=== PATIENT | female | born 1960 | race Caucasian/White ===

== ENCOUNTER 2019-04-15 13:17 | Inpatient (IN) ==
[2019-04-15] MEDS ORDERED: FUROSEMIDE 40 MG/4 ML VIAL IV STA (13:49)
--- NOTE | 2019-04-15 14:19 | XRay Report ---
XR chest 1V portable CLINICAL HISTORY: 58 years-old Female presenting with Dyspnea. TECHNIQUE: Portable upright AP view of the chest was obtained. COMPARISON: None. FINDINGS: Atherosclerosis of the aortic arch. Cardiac silhouette enlarged. Mild pulmonary vascular prominence. Right greater than left pleural effusion suspected. Extensive right mid to basilar opacity with poor aeration of the right lung base. Lesser left basilar opacity. No pneumothorax. Osseous structures nor mal. Upper abdomen normal. IMPRESSION: 1. Cardiomegaly with mild volume overload. 2. Moderate right and small left layering pleural effusions with right greater than left basilar ate lectasis suspected. 3. Underlying consolidation at the right lung base not excluded. Consider PA and lateral views versu s chest CT for further evaluation. ACT 112: Negative or not required by law. Electronically signed by: Jorge Luis Ordoñez M.D. 04/15/2019 2:17 PM
[2019-04-15 14:50] LABS: Basophils # (auto) 0.04 K/uL (0-0.2); Basophils % (auto) 0.6 %; Eosinophils # (auto) 0.11 K/uL (0-0.5); Eosinophils % (auto) 1.6 %; Hematocrit (blood only) 43.8 % (37-47); Hemoglobin 14.4 g/dL (12.0-16.0); Immature Granulocytes # (auto) 0.02 K/uL (0.00-0.02); Immature Granulocytes % (auto) 0.3 %; Lymphocytes # (auto) 1.19 K/uL (1.2-3.4); Lymphocytes % (auto) 17.6 %; Mean Corpuscular Hemoglobin 29.1 pg (25-34); Mean Corpuscular Hgb Conc 32.9 g/dL (32-36); Mean Corpuscular Volume 88.7 fL (80-100); Monocytes # (auto) 0.51 K/uL (0.11-0.59); Monocytes % (auto) 7.5 %; Neutrophils # (auto) 4.91 K/uL (1.4-6.5); Neutrophils % (auto) 72.4 %; Platelet Count 245 K/uL (130-400); RDW Coefficient of Variation 14.7 % (11.5-14.5); Red Blood Count 4.94 M/uL (4.2-5.4); White Blood Count 6.78 K/uL (4.8-10.8)
[2019-04-15 14:59] LABS: INR 1.3 (0.9-1.1); Partial Thromboplastin Ratio 0.9; Partial Thromboplastin Time 25.1 Seconds (21.0-31.0); Prothrombin Time 13.2 Seconds (9.0-12.0)
[2019-04-15 15:10] LABS: Alanine Aminotransferase 16 U/L (12-78); Albumin Globulin Ratio 0.7 (0.9-2); Alkaline Phosphatase 134 U/L (45-117); BUN Creatinine Ratio 10.6 (10-20); Bilirubin,Total 0.9 mg/dl (0.2-1); Blood Urea Nitrogen 7 mg/dl (7-18); Carbon Dioxide 25 mmol/L (21-32); Chloride 102 mmol/L (98-107); Creatinine Clr Calc Pharmacy 112.8 ml/min; Est GFR (African American) 114.5; Est GFR (Non-African American) 98.8; Glucose 325 mg/dl (70-99); NT Pro B Type Natriuretic Pept 2827 pg/ml (0-900); Sodium 135 mmol/L (136-145); Total Protein 7.1 gm/dl (6.4-8.2); Troponin I < 0.015 ng/ml (0-0.045)
[2019-04-15 15:19] LABS: Globulin 4.1 gm/dl (2.5-4.0)
[2019-04-15 15:53] LABS: Potassium 3.4 mmol/L (3.5-5.1)
[2019-04-15 15:59] LABS: Beta-Hydroxybutyrate 4.8 mg/dl (0.2-2.81)
[2019-04-15 16:21] LABS: Appearance Urine Clear (Clear); Bilirubin Urine Negative (Negative); Blood Urine Negative (Negative); Color Urine Yellow; Glucose Urine UA Negative (Negative); Ketones Urine Negative (Negative); Leukocyte Esterase Urine Negative (Negative); Nitrite Urine Negative (Negative); Protein Urine Negative (Negative); Urobilinogen Urine Negative (Negative)
[2019-04-15] MEDS ORDERED: POTASSIUM CHLORIDE 20 MEQ TABCR PO STA (16:36)
[2019-04-15] MEDS ORDERED: NovoLIN-R INSULIN PER UNIT CHARGE IV STA (16:41)
[2019-04-15] MEDS ORDERED: PHARMACY GLYCEMIC MGMT CONSULT STA (16:43)
--- NOTE | 2019-04-15 16:45 | History & Physical Report ---
Date of Service April 15, 2019 Assessment & Plan (1) New onset of congestive heart failure: Patient presents with months history of shortness of breath, dyspnea on exertion, Significant volume overloaded noted on exam Patient has not followed with any physician unknown past cardiac history, patient is not aware of any prior diagnosis of congestive heart failure Chest x-ray shows bilateral pulmonary congestion/with layering of pleural effusion right greater than left/cardiomegaly proBNP 2827 Bilateral lower extreme pitting edema, positive ascites Patient given 40 mg IV Lasix in the ER, Continue with diuresis with 40 mg IV twice daily Ordered for daily weight, monitor intake and output Cardiology consult requested Resting echo ordered to assess LV function, Initial cardiac marker/troponin less than 0.015, serial cardiac markers every 6 hours ordered for ischemic work-up Will order for a fluid restriction 1500 mL/h Hyperglycemia/possible secondary to type 2 diabetes, no prior diagnosis BSG on presentation 325, with elevated beta hydroxybutyric acid 4.80 Normal anion gap, normal bicarb Order to give 8 units of IV insulin stat, Pharmacy consulted for glycemic management, plan of care discussed with pharmacy hb globin A1c ordered to add to the labs drawn already sales representative uniforms consulted Hypertension: No prior diagnosis/has not seen any physician in past Diastolic hypertension noted with diastolic BP more than 100 Patient is ordered for Lasix 40 mg IV twice daily We will start on lisinopril 5 mg daily cardiology consulted, depending on echo finding, patient may benefit with beta- antoinette/Coreg will defer to cardiology for decision Ascites/increased abdominal girth Very likely due to decompensated CHF(unknown ejection fraction-no prior echo)- volume overload with third spacing fluids Order for echocardiogram Continue with diuresis with Lasix 40 mg IV twice daily Normal LFTs, If persistent ascites causing significant discomfort shortness of breath, we may consider abdominal ultrasound- Hypokalemia Patient denies of any episode of nausea vomiting or diarrhea Had poor p.o. intake for generalized weakness, not feeling well, shortness of breath Potassium 3.4 Ordered for 40 mg p.o. supplement Expected potassium level to be persistently low, as patient will be receiving high dose of Lasix, and insulin treatment Ordered scheduled K 20 M EQ p.o. twice daily supplement Repeat BMP in a.m. CODE STATUS: Discussed with patient, does not want any life support or resuscitation, DNR DNI DVT prophylaxis: Moderate to high risk Ordered subcu heparin Disposition; Expected to be discharged home when medically stable History of Present Illness Chief Complaint: Shortness of breath, Primary Care Provider: Rico Fang MD This is a 58-year-old [place] female who has not been followed with any physician, unknown past medical history, presents to ER with complaints of shortness of breath, progressive dyspnea on exertion, lower extremity swelling, and increased abdominal girth Patient mentioned she has been having feeling of shortness of breath for past several weeks, unable to lie flat at night, has been using 3 pillows, Had occasional cough with whitish sputum, no fever or chills Significantly shortness of breath with minimum ambulation, Chest tightness/chest heaviness associated with severe shortness of breath which resolves after taking rest Noted lower extremity swelling for the same duration, also distention of abdomen, leading to discomfort, worsening of shortness of breath when lying flat Reports of increased fatigue, generalized weakness, poor appetite for past several months Mentions of increased thirst, denies of any increased urination, No nausea vomiting, abdominal discomfort secondary to distention Chest x-ray shows pulmonary vascular congestion, patient has 3+ bilateral pitting edema, with prominent ascites, Blood sugar elevated more than 300, Patient denies of prior history of diabetes, Does not know whether her parents had diabetes or not, one nephew is diagnosed with diabetes on oral meds During my interview, patient denied of any shortness of breath at rest, no chest heaviness, no chest discomfort Allergies Allergy/AdvReac Type Severity Reaction Status Date / Time No Known Allergies Allergy Unverified 04/15/19 16:15 Home Medications Home Medications Medication Instructions Recorded Confirmed Type aspirin 325 mg PO UD PRN 04/15/19 04/15/19 History furosemide [Lasix] 20 mg PO DAILY 04/15/19 04/15/19 History Past Med/Surg History Medical History (Updated 04/15/19 @ 17:43 by Jesika Kenyon MD) Diabetes Surgical History No significant past surgical history Social History Feels Safe at Home: Yes Smoking Status: Never smoker Review of Systems Review of Systems: All systems reviewed & are unremarkable except as noted in HPI & below Constitutional: + fatigue, + weakness, + anorexia, + weight gain and + problem reported (Shortness of breath, dyspnea on exertion); no fever and no chills Respiratory: + cough, + dyspnea and + dyspnea on exertion Cardiovascular: + dyspnea, + dyspnea on exertion, + paroxysmal nocturnal dyspn ea and + edema; no radiating jaw, neck or arm pain, no lightheadedness and no syncope Gastrointestinal: + problem reported (Increased abdominal girth, abdominal distention distention causing discomfort); no nausea and no vomiting Genitourinary: no dysuria, no urinary frequency, no urinary urgency, no urinary incontinence and no nocturia Neurologic: + generalized weakness, + dizziness and + syncope Physical Exam Constitutional: WD/WN, vitals as above + ill appearing and + obese; no acute distress Eyes: PERRL, conjunctivae normal, anicteric sclerae ENMT: external ear and nose normal, oropharynx normal Neck: trachea midline, no thyromegaly Respiratory: normal respiratory effort Auscultation: + crackles and + rales (Bilateral rales , more prominent at base) Cardiovascular: Rate/Rhythm: regular rate and regular rhythm Vessels: + JVD (Positive JVD) Extremities: + pedal edema and + edema (Bilateral 3+ pitting edema); no calf tenderness Gastrointestinal (Abdomen): Inspection/Auscultation: + abdomen distended and normal bowel sounds Percussion/Palpation: abdomen soft and + ascites; abdomen nontender Musculoskeletal: no cyanosis or clubbing, extremities motor strength 5/5 Skin: no rashes, warm and dry Neurologic: PERRL, EOMI, accommodation nl, no face palsy, no dysarthria Psychiatric: A+Ox3, euthymic affect Results & Data Vital Signs (Past 12 Hours) Vital Signs Temp Pulse Resp BP Pulse Ox 04/15/19 16:00 119 H 31 H 138/101 H 96 04/15/19 15:30 115 H 20 140/83 97 04/15/19 15:24 116 H 29 H 138/90 96 04/15/19 15:00 115 H 31 H 04/15/19 14:30 116 H 24 04/15/19 14:17 116 H 29 H 96 04/15/19 14:00 112 H 24 04/15/19 13:25 36.4 C L 121 H 20 132/84 94
[2019-04-15] MEDS ORDERED: PHARMACY GLYCEMIC MGMT CONSULT PRN (16:52)
[2019-04-15] MEDS ORDERED: GLUCAGON FOR INJ 1 MG VIAL SQ PRN (17:00)
[2019-04-15] MEDS ORDERED: DEXTROSE 50% 50 ML SYRINGE IV PRN (17:00)
[2019-04-15] MEDS ORDERED: CARBOHYDRATES FOR HYPOGLYCEMIA PO PRN (17:00)
[2019-04-15] MEDS ORDERED: GLUCOSE 10 TABS/TUBE PO PRN (17:00)
[2019-04-15] MEDS ORDERED: INSULIN HUMAN REGULAR PER UNIT 8 UNITS in SYRINGE 7.92 ML IV ONE (17:00)
[2019-04-15] MEDS ORDERED: GLUCOSE 40% GEL 15 GM TUBE PO PRN (17:00)
[2019-04-15] MEDS ORDERED: lisinopriL 5 MG TAB PO ONE (17:33)
[2019-04-15 18:08] LABS: Magnesium 1.6 mg/dl (1.8-2.4)
--- NOTE | 2019-04-15 18:13 | Emergency Department Note ---
Entered by Marla Ahuja acting as a scribe for Michael Wilhelm MD History of Present Illness General Chief complaint: Shortness of Breath/Dyspnea Stated complaint: TROUBLE BREATHING SOB Time Seen by Provider: 04/15/19 13:33 Source: patient History of Present Illness Provider complaint: shortness of breath Onset (ago): month(s) 3 Location: chest Pain Consistency: + other (worsening) Relieved By: + none Associated symptoms: + cough and + other (-abdominal pain, +bilateral leg swelling); no chest pain, no fever/chills and no nausea/vomiting The patient is a 58 year old female w/ PMHx of diabetes who presents to the ED w/ CC of worsening shortness of breath beginning 3 months ago. The patient reports that she has a dry cough. She denies any fever, chills, abdominal pain, chest pain, nausea, or vomiting. She mentions that she has had 20 lb weight gain for the past 2 weeks which she believes have gone to her lower extremites. Home Medications Home Medications Medication Instructions Recorded Confirmed Type aspirin 325 mg PO UD PRN 04/15/19 04/15/19 History furosemide [Lasix] 20 mg PO DAILY 04/15/19 04/15/19 History Allergies Allergy/AdvReac Type Severity Reaction Status Date / Time No Known Allergies Allergy Unverified 04/15/19 16:15 Past Med/Surg History Social History Feels Safe at Home: Yes Smoking Status: Never smoker Review of Systems See HPI for pertinent positives & negatives. and A total of 10 systems reviewed and were otherwise negative Physical Exam Vital Signs Vital Signs - 24 hr 04/15/19 13:25 04/15/19 14:00 04/15/19 14:17 Temperature 36.4 C L Temperature Source Oral Pulse Rate 121 H 112 H 116 H Pulse Rate from SpO2 Sensor Pulse Rhythm Regular Respiratory Rate 20 24 29 H Respiratory Effort / Characteristics Non-Labored Spontaneous Non-Labored Spontaneous Respiratory Depth Normal Normal Blood Pressure 132/84 Blood Pressure Mean 100 Blood Pressure Position Sitting Pulse Oximetry 94 96 Oxygen Delivery Method Room Air Room Air Sepsis Recent Fever Within 48 Hours No Sepsis Action Taken by Nursing No Action Required 04/15/19 14:30 04/15/19 15:00 04/15/19 15:24 Temperature Temperature Source Pulse Rate 116 H 115 H 116 H Pulse Rate from SpO2 Sensor 117 H Pulse Rhythm Respiratory Rate 24 31 H 29 H Respiratory Effort / Characteristics Respiratory Depth Blood Pressure 138/90 Blood Pressure Mean 106 Blood Pressure Position Pulse Oximetry 96 Oxygen Delivery Method Room Air Sepsis Recent Fever Within 48 Hours Sepsis Action Taken by Nursing 04/15/19 15:30 04/15/19 16:00 04/15/19 17:06 Temperature Temperature Source Pulse Rate 115 H 119 H 116 H Pulse Rate from SpO2 Sensor 115 H 119 H 115 H Pulse Rhythm Respiratory Rate 20 31 H 26 H Respiratory Effort / Characteristics Respiratory Depth Blood Pressure 140/83 138/101 H 135/100 Blood Pressure Mean 105 117 122 Blood Pressure Position Pulse Oximetry 97 96 97 Oxygen Delivery Method Room Air Room Air Room Air Sepsis Recent Fever Within 48 Hours Sepsis Action Taken by Nursing 04/15/19 17:19 Temperature Temperature Source Pulse Rate 116 H Pulse Rate from SpO2 Sensor Pulse Rhythm Respiratory Rate 26 H Respiratory Effort / Characteristics Respiratory Depth Blood Pressure 135/100 Blood Pressure Mean Blood Pressure Position Pulse Oximetry 97 Oxygen Delivery Method Room Air Sepsis Recent Fever Within 48 Hours Sepsis Action Taken by Nursing GENERAL: Well nourished, wearing glasses, non-toxic. EYE EXAM: Normal conjunctiva. PERRL, no anisocoria and EOM's grossly intact w/o pain. OROPHARYNX: Moist mucous membranes. Grossly normal dentition. NECK: Supple, no nuchal rigidity, no adenopathy, non-tender. No signs of meningismus. LUNGS: Bibasilar crackles, diminished breath sounds bilaterally. Normal chest wall mechanics. HEART: NSR, no MRG. ABDOMEN: Abdomen soft, non-tender, normo-active bowel sounds, no masses, no rebound or guarding. BACK: No CVA TTP. SKIN: No rashes and no bruising. UPPER EXTREMITIES: Upper extremities are grossly normal. LOWER EXTREMITIES: 3+ lower extremity symmetric edema. No calf pain. NEURO EXAM: A&O x3, cranial nerves II-XII grossly intact, normal speech, moves all 4 extremities on command w/o issue. Course Course 1344: The patient was evaluated in room B5, and a complete history and physical examination were performed. 1540: I reviewed the patient's case with Dr. Kowalski- Hospitalist Brennan. She will evaluate the patient for further management. 1600: I reevaluated and updated the patient on her treatment plan. Administered Medications Insulin Human Regular 8 units/ (Syringe) 8 mls @ 0.08 mls/min IV 1700 ONE Stop: 04/15/19 18:39 Last Admin: 04/15/19 17:07 Dose: 0.08 mls/min Documented by: [id number] Cosigned by: [id number] Discontinued Medications Furosemide (Lasix) 40 mg IV NOW STA Stop: 04/15/19 13:50 Last Admin: 04/15/19 15:25 Dose: 40 mg Documented by: [id number] Potassium Chloride (Klor-Con M20) 40 meq PO NOW STA Stop: 04/15/19 16:37 Last Admin: 04/15/19 17:06 Dose: 40 meq Documented by: [id number] Medical Decision Making Medical Records Attestation: I reviewed the patient's medical records. Home Medications Current Medication List: was personally reviewed by me Laboratory Data Attestation: I reviewed the patient's lab results. Result diagrams: 04/15/19 14:38 04/15/19 15:29 Lab Results 04/15/19 04/15/19 04/15/19 Range/Units 14:38 14:38 14:38 WBC 6.78 (4.8-10.8) K/uL RBC 4.94 (4.2-5.4) M/uL Hgb 14.4 (12.0-16.0) g/dL Hct 43.8 (37-47) % MCV 88.7 (80-100) fL MCH 29.1 (25-34) pg MCHC 32.9 (32-36) g/dL RDW Std Deviation 47.0 H (36.4-46.3) fL RDW Coeff of Zak 14.7 H (11.5-14.5) % Plt Count 245 (130-400) K/uL MPV 10.0 (7.4-10.4) fL Immature Gran % (Auto) 0.3 % Neut % (Auto) 72.4 % Lymph % (Auto) 17.6 % Pender % (Auto) 7.5 % Eos % (Auto) 1.6 % Baso % (Auto) 0.6 % Immature Gran # (Auto) 0.02 (0.00-0.02) K/uL Neut # (Auto) 4.91 (1.4-6.5) K/uL Lymph # (Auto) 1.19 L (1.2-3.4) K/uL Pender # (Auto) 0.51 (0.11-0.59) K/uL Eos # (Auto) 0.11 (0-0.5) K/uL Baso # (Auto) 0.04 (0-0.2) K/uL PT 13.2 H (9.0-12.0) Seconds INR 1.3 H (0.9-1.1) APTT 25.1 (21.0-31.0) Seconds PTT Ratio 0.9 Sodium 135 L (136-145) mmol/L Potassium (3.5-5.1) mmol/L Chloride 102 (98-107) mmol/L Carbon Dioxide 25 (21-32) mmol/L Anion Gap 8.0 (3-11) BUN 7 (7-18) mg/dl Creatinine 0.66 (0.6-1.2) mg/dl Est Cr Clr Drug Dosing 112.8 ml/min Est GFR ( Amer) 114.5 Est GFR (Non-Af Amer) 98.8 BUN/Creatinine Ratio 10.6 (10-20) Glucose 325 H* (70-99) mg/dl Calcium 9.0 (8.5-10.1) mg/dl Magnesium (1.8-2.4) mg/dl Total Bilirubin 0.9 (0.2-1) mg/dl AST (15-37) U/L ALT 16 (12-78) U/L Alkaline Phosphatase 134 H (45-117) U/L Troponin I < 0.015 (0-0.045) ng/ml NT-Pro-B Natriuret Pep 2827 H (0-900) pg/ml Total Protein 7.1 (6.4-8.2) gm/dl Albumin 3.0 L (3.4-5.0) gm/dl Globulin 4.1 H (2.5-4.0) gm/dl Albumin/Globulin Ratio 0.7 L (0.9-2) Beta-Hydroxybutyric Acd (0.2-2.81) mg/dl Urine Color Urine Appearance (Clear) Urine pH (4.5-7.5) Ur Specific [place] (1.000-1.030) Urine Protein (Negative) Urine Glucose (UA) (Negative) Urine Ketones (Negative) Urine Blood (Negative) Urine Nitrite (Negative) Urine Bilirubin (Negative) Urine Urobilinogen (Negative) Ur Leukocyte Esterase (Negative) 04/15/19 04/15/19 Range/Units 15:29 15:54 WBC (4.8-10.8) K/uL RBC (4.2-5.4) M/uL Hgb (12.0-16.0) g/dL Hct (37-47) % MCV (80-100) fL MCH (25-34) pg MCHC (32-36) g/dL RDW Std Deviation (36.4-46.3) fL RDW Coeff of Zak (11.5-14.5) % Plt Count (130-400) K/uL MPV (7.4-10.4) fL Immature Gran % (Auto) % Neut % (Auto) % Lymph % (Auto) % Pender % (Auto) % Eos % (Auto) % Baso % (Auto) % Immature Gran # (Auto) (0.00-0.02) K/uL Neut # (Auto) (1.4-6.5) K/uL Lymph # (Auto) (1.2-3.4) K/uL Pender # (Auto) (0.11-0.59) K/uL Eos # (Auto) (0-0.5) K/uL Baso # (Auto) (0-0.2) K/uL PT (9.0-12.0) Seconds INR (0.9-1.1) APTT (21.0-31.0) Seconds PTT Ratio Sodium (136-145) mmol/L Potassium 3.4 L (3.5-5.1) mmol/L Chloride (98-107) mmol/L Carbon Dioxide (21-32) mmol/L Anion Gap (3-11) BUN (7-18) mg/dl Creatinine (0.6-1.2) mg/dl Est Cr Clr Drug Dosing ml/min Est GFR ( Amer) Est GFR (Non-Af Amer) BUN/Creatinine Ratio (10-20) Glucose (70-99) mg/dl Calcium (8.5-10.1) mg/dl Magnesium 1.6 L (1.8-2.4) mg/dl Total Bilirubin (0.2-1) mg/dl AST 16 (15-37) U/L ALT (12-78) U/L Alkaline Phosphatase (45-117) U/L Troponin I (0-0.045) ng/ml NT-Pro-B Natriuret Pep (0-900) pg/ml Total Protein (6.4-8.2) gm/dl Albumin (3.4-5.0) gm/dl Globulin (2.5-4.0) gm/dl Albumin/Globulin Ratio (0.9-2) Beta-Hydroxybutyric Acd 4.80 H (0.2-2.81) mg/dl Urine Color Yellow Urine Appearance Clear (Clear) Urine pH 6.0 (4.5-7.5) Ur Specific [place] 1.010 (1.000-1.030) Urine Protein Negative (Negative) Urine Glucose (UA) Negative (Negative) Urine Ketones Negative (Negative) Urine Blood Negative (Negative) Urine Nitrite Negative (Negative) Urine Bilirubin Negative (Negative) Urine Urobilinogen Negative (Negative) Ur Leukocyte Esterase Negative (Negative) Imaging Data Radiologist's Impression: Radiology results as stated below per my review and the radiologist's interpretation: XR chest 1V portable CLINICAL HISTORY: 58 years-old Female presenting with Dyspnea. TECHNIQUE: Portable upright AP view of the chest was obtained. COMPARISON: None. FINDINGS: Atherosclerosis of the aortic arch. Cardiac silhouette enlarged. Mild pulmonary vascular prominence. Right greater than left pleural effusion suspected. Extensive right mid to basilar opacity with poor aeration of the right lung base. Lesser left basilar opacity. No pneumothorax. Osseous structures normal. Upper abdomen normal. IMPRESSION: 1. Cardiomegaly with mild volume overload. 2. Moderate right and small left layering pleural effusions with right greater than left basilar atelectasis suspected. 3. Underlying consolidation at the right lung base not excluded. Consider PA and lateral views versus chest CT for further evaluation. ACT 112: Negative or not required by law. Electronically signed by: Jorge Luis Odroñez M.D. 04/15/2019 2:17 PM ECG Data Attestation: I personally reviewed and interpreted this ECG as follows: Indication: + SOB/dyspnea Rate (beats per minute): 115 Rhythm: + sinus rhythm ECG [place]: + Normal ECG ST segments: no ST depression and no ST elevation ECG Findings: + Other (normal interval) Blood Pressure Blood Pressure Findings: Elevated blood pressure Blood Pressure Disposition: further management by hospitalist ISIDRO Gusman Differential diagnosis: Etiologies such as infections, reactive airway disease, pneumonia, pneumothorax, COPD, CHF, cardiac ischemia, pulmonary embolism, musculoskeletal, gastrointestinal, as well as others were entertained. The patient is a 58 year old female w/ PMHx of diabetes who presents to the ED w/ CC of worsening shortness of breath beginning 3 months ago. Patient was seen as a referral from outpatient clinic. The patient has had increasing exertional dyspnea and shortness of breath. The patient has noted an increase in weight gain. The patient was seen several weeks ago and started on diuretics. The patient states that she is had okay urine output. The patient does appear volume overloaded at the bedside. The patient did a bladder completed along with an EKG, troponin, chest x-ray and BNP. Lasix was also ordered. Patient has a normal white count H&H. The patient does have some very mild hypokalemia elevated blood glucose. The patient's anion gap is within normal limits. Magnesium is a touch low which may be repleted as an inpatient. BNP is elevated chest film does show pleural effusions. Believe the patient is suffering from new onset CHF and has not made strides with outpatient treatment with diuretics. I discussed this with the hospitalist. We further discussed the possibility of requiring a CT which would be deferred to the hospitalist after being seen. I did consider the possibility of PE. The patient is not hypoxic but is tachycardic. The patient's lower extremities appear symmetrically edematous. Patient was admitted to the inpatient service. Impression & Plan Acute exacerbation of congestive heart failure, Hyperglycemia, Hypomagnesemia Discharge Plan Visit Data Chief Complaint: Shortness of Breath/Dyspnea Stated Complaint: TROUBLE BREATHING SOB ED Provider: Michael Wilhelm Discharge Problem: Acute exacerbation of congestive heart failure, Hyperglycemia, Hypomagnesemia Patient Disposition: Being Evaluated by Hospitalist Discharge Instructions Interventions: ED Discharge Assessment Last Done: 04/15/19 17:19 Forms Stand Alone Forms: My [employer] Prescriptions Prescriptions: No Action aspirin 325 mg Tablet,Delayed Release (Dr/Ec) 325 mg PO UD PRN (Reason: Pain) RF: 0 furosemide [Lasix] 20 mg Tablet 20 mg PO DAILY RF: 0 Referrals Referrals: Rico Fang MD [Primary Care Provider] - Discharge Problem: Acute exacerbation of congestive heart failure Qualifiers: Heart failure type: unspecified Qualified Code(s): I50.9 - Heart failure, unspecified The scribe's documentation has been prepared under my direction and personally reviewed by me in its entirety. I confirm that the note above accurately reflects all work, treatment, procedures, and medical decision making performed by me.
[2019-04-15] MEDS ORDERED: NITROGLYCERIN SL 0.4 MG/TAB TAB SL PRN (18:33)
[2019-04-15] MEDS ORDERED: MAGNESIUM HYDROXIDE SUSP 30 ML UDC PO PRN (18:33)
[2019-04-15] MEDS ORDERED: ALUMINUM/MAGNESIUM SUSP 30 ML UDC PO PRN (18:33)
[2019-04-15] MEDS ORDERED: POLYETHYLENE (MIRALAX) 17 GM PACK PO PRN (18:33)
[2019-04-15] MEDS ORDERED: ACETAMINOPHEN 325 MG TAB PO PRN (18:33)
[2019-04-15] MEDS: FUROSEMIDE 40 MG in SYRINGE 0 ML IV SCH (19:25)
[2019-04-15] MEDS: INSULIN ASPART 100 UNITS/ML 3 ML PEN SC SCH ×2 (19:25→21:43)
[2019-04-15] MEDS: POTASSIUM CHLORIDE 20 MEQ TABCR PO SCH (19:26)
[2019-04-15] MEDS ORDERED: INSULIN GLARGINE SOLOSTAR 100 UNITS/ML 3 ML PEN SC ONE (21:00)
[2019-04-15] MEDS: MAGNESIUM SULFATE / D5W 1 GM/100 ML BAG IV SCH ×2 (21:34→22:36)
[2019-04-15] MEDS: HEPARIN SOD 5,000 UNIT/0.5 ML VIAL SQ SCH (21:44)
--- NOTE | 2019-04-15 22:24 | Electrocardiogram Report ---
Test Reason : Blood Pressure : / mmHG Vent. Rate : 116 BPM Atrial Rate : 116 BPM P-R Int : 184 ms QRS Dur : 098 ms QT Int : 324 ms P-R-T Axes : 052 025 014 degrees QTc Int : 450 ms Sinus tachycardia Possible Left atrial enlargement Nonspecific T wave abnormality Abnormal ECG No previous ECGs available Confirmed by Michael Adams ([id number]) on 04/15/2019 10:24:08 PM Referred By: REFERRED SELF Confirmed By:Michael Adams
[2019-04-16] MEDS: INSULIN ASPART 100 UNITS/ML 3 ML PEN SC SCH ×6 (00:02→21:19)
[2019-04-16] MEDS: HEPARIN SOD 5,000 UNIT/0.5 ML VIAL SQ SCH ×3 (05:37→21:20)
[2019-04-16 06:53] LABS: Estimated Average Glucose 378 mg/dl; Hemoglobin A1C 14.8 % (4.5-5.6)
[2019-04-16 07:40] LABS: Hematocrit (blood only) 39.3 % (37-47); Hemoglobin 13.1 g/dL (12.0-16.0); Mean Corpuscular Hemoglobin 29.3 pg (25-34); Mean Corpuscular Hgb Conc 33.3 g/dL (32-36); Mean Corpuscular Volume 87.9 fL (80-100); Mean Platelet Volume 9.7 fL (7.4-10.4); Platelet Count 243 K/uL (130-400); RDW Coefficient of Variation 14.8 % (11.5-14.5); RDW Standard Deviation 47.4 fL (36.4-46.3); Red Blood Count 4.47 M/uL (4.2-5.4); White Blood Count 6.89 K/uL (4.8-10.8)
--- NOTE | 2019-04-16 08:01 | XRay Report ---
XR chest 1V portable HISTORY: Shortness of breath. Congestive heart failure. COMPARISON: Chest 04/15/2019. FINDINGS: No pneumothorax. The heart remains enlarged. Moderate right and small left pleural effusion s with bibasilar densities persist. There is mild central pulmonary vascular congestion without overt edema. IMPRESSION: No change in the bilateral pleural effusions and bibasilar opacities. ACT 112: Negative or not required by law. Electronically signed by: Leonard Starr M.D. 04/16/2019 7:59 AM
[2019-04-16] MEDS: ASPIRIN 81 MG ECTAB PO SCH (08:15)
[2019-04-16] MEDS: POTASSIUM CHLORIDE 20 MEQ TABCR PO SCH ×2 (08:15→20:03)
[2019-04-16] MEDS: FUROSEMIDE 40 MG in SYRINGE 0 ML IV SCH ×3 (08:15→20:02)
[2019-04-16 08:17] LABS: Calcium 8.7 mg/dl (8.5-10.1); Creatinine Clr Calc Pharmacy 173.3 ml/min; Est GFR (African American) 128.9; Est GFR (Non-African American) 111.2; Magnesium 1.8 mg/dl (1.8-2.4); Potassium 3.3 mmol/L (3.5-5.1)
[2019-04-16 08:27] LABS: Thyroid Stimulating Hormone 3.38 uIu/ml (0.300-4.500)
[2019-04-16] MEDS: lisinopriL 5 MG TAB PO SCH (09:11)
--- NOTE | 2019-04-16 09:33 | Pharmacy Report ---
Glycemic Control Consultation - Date of Service April 16, 2019 - Scope Scope: Glycemic Pharmacist consulted by Dr Kenyon on 04/15/2019 for glycemic control and to write orders per [facility] inpatient glycemic control protocol - Objective Weight: 118.9 kg Accuchecks BSG (last 24hrs): 04/15/19 04/15/19 04/15/19 14:38 18:32 20:20 Glucose 325 H* POC Glucose 267 H 269 H 04/16/19 04/16/19 04/16/19 00:02 04:11 07:08 Glucose 117 H POC Glucose 179 H 113 H 04/16/19 07:40 Glucose POC Glucose 109 H Laboratory Data (last 24hrs): 04/15/19 04/15/19 04/16/19 14:38 15:29 07:08 Potassium 3.4 L 3.3 L Carbon Dioxide 25 28 Anion Gap 8.0 7.0 Creatinine 0.66 0.46 L Est Cr Clr Drug Dosing 112.8 173.3 Beta-Hydroxybutyric Acd 4.80 H HbA1c: Hemoglobin A1c 14.8 % (4.5-5.6) H 04/15/19 14:38 - Recent Pertinent Medications Outpatient Anti-diabetic Regimen: * N/A The patient is currently receiving: * Basal insulin: Lantus 25 units x 1 * Correctional Insulin: Novolog Correction per scale ACHS Goal Range: Low 110 mg/dL - High 140 mg/dL Correction Factor: 20 mg/dL/unit * Prandial insulin: Per carb ratio of 1 unit per 7 grams CHO consumed Risk Factors for Insulin Resistance: * Diet: T2DM - Assessment & Plan Assessment & Plan: ASSESSMENT: * Ms Osman is a 58 y/o F admitted with new onset heart failure. Patient's BSGs on admission were 325 mg/dL and 267 mg/dL (received 8 unit IV regular insulin bolus). She received Lantus 25 units and weight-based stress of 2 Novolog. Overnight checks were 179-113 mg/dL. This indicates that patient is probably insulin sensitive. * For Lantus, will have a scale for this evening. Doses will range from 15 units for BSG less than 160 mg/dL to 20 units for BSG 160 mg/dL or greater. Lantus 25 units produced a fasting of 109 mg/dL. * For Novolog, will loosen slightly. PLAN FOR INPATIENT GLYCEMIC CONTROL: * Basal insulin * Lantus 15-20 units SQ HS * Bolus insulin * NovoLog per scale ACHS or Q6hrs while NPO * Goal Range: Low 110 mg/dL - High 140 mg/dL * Correction Factor: 25 mg/dL/unit * Nutritional / Prandial insulin per carb ratio of 1 unit per 9 grams CHO consumed * Please note that the plan above was derived based on current level of insulin resistance and hospital stress. These recommendations are appropriate for inpatient admission only. Plan of care upon discharge will need to be reassessed to avoid potential outpatient hypo/hyperglycemia. Thank you.
[2019-04-16] MEDS ORDERED: PERFLUTREN LIPID MICROSPHERE (DEFINITY) IV ONE (09:50)
--- NOTE | 2019-04-16 11:11 | Cardiology Consultation ---
Date of Consultation April 16, 2019 Assessment & Plan (1) Acute systolic (congestive) heart failure: Echocardiogram demonstrates diffuse LV dysfunction EF 15 to 20% without specific wall motion abnormality. Patient presents with acute on probable chronic decompensated heart failure several months duration. No overt inciting cause. Plan continue diuresis. Optimize medical regimen. JEFF inhibitor begun this morning will initiate low-dose CHF indicated beta-antoinette. Follow closely in hospital with further evaluation depending on clinical course. Hemodynamically patient appears to be tolerating diuretics at this time Current etiology ill-defined initial presentation does not suggest acute ischemic heart disease. Thyroid function normal. No proteinuria or hepatic dysfunction We will follow while patient is in hospital (2) Anasarca: Secondary to biventricular heart failure History of Present Illness Reason for Consultation: Biventricular heart failure Requesting Physician: Dr. Kenyon Attending Physician: Jesika Kenyon MD History of Present Illness Patient is a 58-year-old female without prior history of cardiac disease and little past medical history per her description who presents now with 2 to 3 months history of worsening shortness of breath increasing abdominal girth and lower extremity edema. She is on a diuretic chronically to be used on a as needed basis but notes edema has persisted and with limited use of diuretic at home. Weight is gradually increased over the past several months by nearly 50 pounds. No tachypalpitations syncope or near syncope. No chest pains or discomfort. No fevers chills unexplained infections. Patient is active about her home but notes recent decline in overall exercise tolerance. No sleep disruption. Allergies Allergy/AdvReac Type Severity Reaction Status Date / Time No Known Allergies Allergy Unverified 04/15/19 16:15 Home Medications Home Medications Medication Instructions Recorded Confirmed Type aspirin 325 mg PO UD PRN 04/15/19 04/15/19 History furosemide [Lasix] 20 mg PO DAILY 04/15/19 04/15/19 History Patient History Surgical History No significant past surgical history Social History Preferred Language: Trinid[place] Communication Ability: Effective Laundry Equipment Operator Required: No Beliefs That Will Affect Care: None marital status: Current Living Situation: Spouse Other Information That Helps Us Care for You: No Feels Safe at Home: Yes Safety Concerns: Feels Safe At This Time Smoking Status: Never smoker Hx Alcohol Use: No Hx Substance Use: No Review of Systems Review of Systems: All systems reviewed & are unremarkable except as noted in HPI & below Physical Exam Constitutional: + obese; no acute distress Eyes: PERRL, conjunctivae normal, anicteric sclerae ENMT: external ear and nose normal, oropharynx normal Neck: trachea midline, no thyromegaly Respiratory: Auscultation: + diminished lung sounds (Greater in right base) Cardiovascular: Rate/Rhythm: regular rate and regular rhythm Heart Sounds: normal S1, normal S2, + gallop and + murmur (Grade 1/6 systolic murmur right lower sternal border) Palpation: + heave Vessels: + JVD, normal carotid upstroke and radial pulses present; no carotid bruit Extremities: + edema (3+ anasarca edema to the thighs and abdomen) Gastrointestinal (Abdomen): normal bowel sounds, soft, nontender, no hepatosplenomegaly Musculoskeletal: no cyanosis or clubbing, extremities motor strength 5/5 Skin: no rashes, warm and dry Neurologic: PERRL, EOMI, accommodation nl, no face palsy, no dysarthria Psychiatric: A+Ox3, euthymic affect Results & Data ([facility]) Vital Signs (Past 12 Hours) Vital Signs Temp Pulse Pulse Resp BP Pulse Ox Pulse Ox 04/16/19 11:02 36.4 C L 108 H 19 121/81 94 04/16/19 07:15 36.3 C L 104 H 20 126/88 95 04/16/19 03:39 36.3 C L 103 H 18 104/69 91 04/16/19 02:47 108 H 04/16/19 00:00 97 Laboratory Results Laboratory Results - last 24 hr 04/15/19 04/15/19 04/15/19 14:38 14:38 14:38 WBC 6.78 RBC 4.94 Hgb 14.4 Hct 43.8 MCV 88.7 MCH 29.1 MCHC 32.9 RDW Std Deviation 47.0 H RDW Coeff of Zak 14.7 H Plt Count 245 MPV 10.0 Immature Gran % (Auto) 0.3 Neut % (Auto) 72.4 Lymph % (Auto) 17.6 [place] % (Auto) 7.5 Eos % (Auto) 1.6 Baso % (Auto) 0.6 Immature Gran # (Auto) 0.02 Neut # (Auto) 4.91 Lymph # (Auto) 1.19 L [place] # (Auto) 0.51 Eos # (Auto) 0.11 Baso # (Auto) 0.04 PT 13.2 H INR 1.3 H APTT 25.1 PTT Ratio 0.9 Sodium 135 L Potassium Chloride 102 Carbon Dioxide 25 Anion Gap 8.0 BUN 7 Creatinine 0.66 Est Cr Clr Drug Dosing 112.8 Est GFR ( Amer) 114.5 Est GFR (Non-Af Amer) 98.8 BUN/Creatinine Ratio 10.6 Glucose 325 H* POC Glucose Estimat Average Glucose Hemoglobin A1c Calcium 9.0 Magnesium Total Bilirubin 0.9 AST ALT 16 Alkaline Phosphatase 134 H Troponin I < 0.015 NT-Pro-B Natriuret Pep 2827 H Total Protein 7.1 Albumin 3.0 L Globulin 4.1 H Albumin/Globulin Ratio 0.7 L Triglycerides Cholesterol LDL Cholesterol, Calc VLDL Cholesterol, Calc HDL Cholesterol Cholesterol/HDL Ratio Beta-Hydroxybutyric Acd TSH Urine Color Urine Appearance Urine pH Ur Specific [place] Urine Protein Urine Glucose (UA) Urine Ketones Urine Blood Urine Nitrite Urine Bilirubin Urine Urobilinogen Ur Leukocyte Esterase 04/15/19 04/15/19 04/15/19 14:38 15:29 15:54 WBC RBC Hgb Hct MCV MCH MCHC RDW Std Deviation RDW Coeff of Zak Plt Count MPV Immature Gran % (Auto) Neut % (Auto) Lymph % (Auto) [place] % (Auto) Eos % (Auto) Baso % (Auto) Immature Gran # (Auto) Neut # (Auto) Lymph # (Auto) [place] # (Auto) Eos # (Auto) Baso # (Auto) PT INR APTT PTT Ratio Sodium Potassium 3.4 L Chloride Carbon Dioxide Anion Gap BUN Creatinine Est Cr Clr Drug Dosing Est GFR ( Amer) Est GFR (Non-Af Amer) BUN/Creatinine Ratio Glucose POC Glucose Estimat Average Glucose 378 Hemoglobin A1c 14.8 H Calcium Magnesium 1.6 L Total Bilirubin AST 16 ALT Alkaline Phosphatase Troponin I NT-Pro-B Natriuret Pep Total Protein Albumin Globulin Albumin/Globulin Ratio Triglycerides Cholesterol LDL Cholesterol, Calc VLDL Cholesterol, Calc HDL Cholesterol Cholesterol/HDL Ratio Beta-Hydroxybutyric Acd 4.80 H TSH Urine Color Yellow Urine Appearance Clear Urine pH 6.0 Ur Specific [place] 1.010 Urine Protein Negative Urine Glucose (UA) Negative Urine Ketones Negative Urine Blood Negative Urine Nitrite Negative Urine Bilirubin Negative Urine Urobilinogen Negative Ur Leukocyte Esterase Negative 04/15/19 04/15/19 04/15/19 18:32 20:20 22:33 WBC RBC Hgb Hct MCV MCH MCHC RDW Std Deviation RDW Coeff of Zak Plt Count MPV Immature Gran % (Auto) Neut % (Auto) Lymph % (Auto) [place] % (Auto) Eos % (Auto) Baso % (Auto) Immature Gran # (Auto) Neut # (Auto) Lymph # (Auto) [place] # (Auto) Eos # (Auto) Baso # (Auto) PT INR APTT PTT Ratio Sodium Potassium Chloride Carbon Dioxide Anion Gap BUN Creatinine Est Cr Clr Drug Dosing Est GFR ( Amer) Est GFR (Non-Af Amer) BUN/Creatinine Ratio Glucose POC Glucose 267 H 269 H Estimat Average Glucose Hemoglobin A1c Calcium Magnesium Total Bilirubin AST ALT Alkaline Phosphatase Troponin I < 0.015 NT-Pro-B Natriuret Pep Total Protein Albumin Globulin Albumin/Globulin Ratio Triglycerides Cholesterol LDL Cholesterol, Calc VLDL Cholesterol, Calc HDL Cholesterol Cholesterol/HDL Ratio Beta-Hydroxybutyric Acd TSH Urine Color Urine Appearance Urine pH Ur Specific [place] Urine Protein Urine Glucose (UA) Urine Ketones Urine Blood Urine Nitrite Urine Bilirubin Urine Urobilinogen Ur Leukocyte Esterase 04/16/19 04/16/19 04/16/19 00:02 04:11 07:08 WBC 6.89 RBC 4.47 Hgb 13.1 Hct 39.3 MCV 87.9 MCH 29.3 MCHC 33.3 RDW Std Deviation 47.4 H RDW Coeff of Zak 14.8 H Plt Count 243 MPV 9.7 Immature Gran % (Auto) Neut % (Auto) Lymph % (Auto) [place] % (Auto) Eos % (Auto) Baso % (Auto) Immature Gran # (Auto) Neut # (Auto) Lymph # (Auto) [place] # (Auto) Eos # (Auto) Baso # (Auto) PT INR APTT PTT Ratio Sodium Potassium Chloride Carbon Dioxide Anion Gap BUN Creatinine Est Cr Clr Drug Dosing Est GFR ( Amer) Est GFR (Non-Af Amer) BUN/Creatinine Ratio Glucose POC Glucose 179 H 113 H Estimat Average Glucose Hemoglobin A1c Calcium Magnesium Total Bilirubin AST ALT Alkaline Phosphatase Troponin I NT-Pro-B Natriuret Pep Total Protein Albumin Globulin Albumin/Globulin Ratio Triglycerides Cholesterol LDL Cholesterol, Calc VLDL Cholesterol, Calc HDL Cholesterol Cholesterol/HDL Ratio Beta-Hydroxybutyric Acd TSH Urine Color Urine Appearance Urine pH Ur Specific [place] Urine Protein Urine Glucose (UA) Urine Ketones Urine Blood Urine Nitrite Urine Bilirubin Urine Urobilinogen Ur Leukocyte Esterase 04/16/19 04/16/19 07:08 07:40 WBC RBC Hgb Hct MCV MCH MCHC RDW Std Deviation RDW Coeff of Zak Plt Count MPV Immature Gran % (Auto) Neut % (Auto) Lymph % (Auto) [place] % (Auto) Eos % (Auto) Baso % (Auto) Immature Gran # (Auto) Neut # (Auto) Lymph # (Auto) [place] # (Auto) Eos # (Auto) Baso # (Auto) PT INR APTT PTT Ratio Sodium 139 Potassium 3.3 L Chloride 104 Carbon Dioxide 28 Anion Gap 7.0 BUN 6 L Creatinine 0.46 L Est Cr Clr Drug Dosing 173.3 Est GFR ( Amer) 128.9 Est GFR (Non-Af Amer) 111.2 BUN/Creatinine Ratio 12.0 Glucose 117 H POC Glucose 109 H Estimat Average Glucose Hemoglobin A1c Calcium 8.7 Magnesium 1.8 Total Bilirubin AST ALT Alkaline Phosphatase Troponin I NT-Pro-B Natriuret Pep Total Protein Albumin Globulin Albumin/Globulin Ratio Triglycerides 83 Cholesterol 114 LDL Cholesterol, Calc 66 VLDL Cholesterol, Calc 17 HDL Cholesterol 31 Cholesterol/HDL Ratio 4 Beta-Hydroxybutyric Acd TSH 3.380 Urine Color Urine Appearance Urine pH Ur Specific [place] Urine Protein Urine Glucose (UA) Urine Ketones Urine Blood Urine Nitrite Urine Bilirubin Urine Urobilinogen Ur Leukocyte Esterase
[2019-04-16] MEDS ORDERED: POTASSIUM CHLORIDE 20 MEQ TABCR PO ONE (12:00)
[2019-04-16] MEDS: METOPROLOL SUCC 25MG EXT REL TAB PO SCH (12:07)
--- NOTE | 2019-04-16 14:53 | Hospitalist Progress Note ---
Date of Service April 16, 2019 Assessment & Plan (1) New onset of congestive heart failure: Acute decompensated CHF with severe systolic dysfunction: Echocardiogram demonstrates diffuse LV dysfunction EF 15 to 20% without specific wall motion abnormality. Patient presents with months history of shortness of breath, dyspnea on exertion, Significant volume overload Chest x-ray shows bilateral pulmonary congestion/with layering of pleural effusion right greater than left/cardiomegaly proBNP 2827 Bilateral lower extreme pitting edema, positive ascites Appreciate input from cardiology, Patient is continued with aggressive diuresis with Lasix 40 mg 3 times daily, started on JEFF inhibitor, and low-dose beta-antoinette for CHF No evidence of acute DE, or acute ischemic event leading to systolic dysfunction, her presentation has been chronic ongoing for the past several months Type 2 diabetes Presented with hyperglycemia-no prior diagnosis, was not on any antidiabetic medication BSG on presentation 325, with elevated beta hydroxybutyric acid 4.80 Normal anion gap, normal bicarb Hemoglobin A1c more than 14 Patient is started on basal Lantus, insulin sliding scale Pharmacy consulted for glycemic management, appreciate input adaptive physical educator consulted Hypertension: Blood pressure stable, continue with Lasix, for IV diuresis, started on low-dose JEFF inhibitor and beta-antoinette for CHF Ascites/increased abdominal girth Very likely due to decompensated CHF(unknown ejection fraction-no prior echo)- volume overload with third spacing fluids Echo shows severe H systolic cardiomyopathy with EF 15-20% Continue with diuresis with Lasix 40 mg IV 3 times daily Normal LFTs, Patient reports improvement of abdominal discomfort swelling after getting IV Lasix Hypokalemia Stable secondary to diuresis, ordered for replacement repeat BMP in a.m. CODE STATUS: Discussed with patient, does not want any life support or resuscitation, DNR DNI DVT prophylaxis: Moderate to high risk subcu heparin Disposition; Expected to be discharged home when medically stable Admission and Anticipated Discharge Date Admission Date: April 15, 2019 Subjective SOB has improved no cough , no fever or chills feels abdominal distention , lower ext swelling has improved no complain of PYLE , chest pressure , no dizzy spell or lightheadedness Review of Systems Constitutional: + fatigue, + weakness, + anorexia and + weight gain; no fever and no chills Respiratory: + cough, + dyspnea and + dyspnea on exertion Cardiovascular: + dyspnea, + dyspnea on exertion, + paroxysmal nocturnal dyspnea and + edema; no radiating jaw, neck or arm pain, no lightheadedness and no syncope Gastrointestinal: no nausea and no vomiting Neurologic: + generalized weakness, + dizziness and + syncope Physical Exam Constitutional: WD/WN, vitals as above + ill appearing and + obese; no acute distress Eyes: PERRL, conjunctivae normal, anicteric sclerae ENMT: external ear and nose normal, oropharynx normal Neck: trachea midline, no thyromegaly Respiratory: normal respiratory effort Auscultation: + crackles and + rales (Bilateral rales , more prominent at base) Cardiovascular: Rate/Rhythm: regular rate and regular rhythm Vessels: + JVD (Positive JVD) Extremities: + pedal edema and + edema (Bilateral 3+ pitting edema); no calf tenderness Gastrointestinal (Abdomen): Inspection/Auscultation: + abdomen distended and normal bowel sounds Percussion/Palpation: abdomen soft and + ascites; abdomen nontender Musculoskeletal: no cyanosis or clubbing, extremities motor strength 5/5 Skin: no rashes, warm and dry Neurologic: PERRL, EOMI, accommodation nl, no face palsy, no dysarthria Psychiatric: A+Ox3, euthymic affect Results & Data ([facility]) Vital Signs (Past 12 Hours) Vital Signs Temp Pulse Resp BP Pulse Ox 04/16/19 11:02 36.4 C L 108 H 19 121/81 94 04/16/19 07:15 36.3 C L 104 H 20 126/88 95 04/16/19 03:39 36.3 C L 103 H 18 104/69 91
[2019-04-16] MEDS ORDERED: INSULIN GLARGINE SOLOSTAR 100 UNITS/ML 3 ML PEN SC SCH (21:00)
[2019-04-17] MEDS: HEPARIN SOD 5,000 UNIT/0.5 ML VIAL SQ SCH ×2 (06:17→14:56)
[2019-04-17 07:24] LABS: BUN Creatinine Ratio 12.4 (10-20); Calcium 9.2 mg/dl (8.5-10.1); Creatinine Clr Calc Pharmacy 111.5 ml/min; Est GFR (African American) 112.3; Est GFR (Non-African American) 96.9; Potassium 3.9 mmol/L (3.5-5.1)
[2019-04-17] MEDS: INSULIN ASPART 100 UNITS/ML 3 ML PEN SC SCH ×4 (08:29→21:53)
[2019-04-17] MEDS: METOPROLOL SUCC 25MG EXT REL TAB PO SCH (08:31)
[2019-04-17] MEDS: lisinopriL 5 MG TAB PO SCH (08:31)
[2019-04-17] MEDS: POTASSIUM CHLORIDE 20 MEQ TABCR PO SCH ×2 (08:31→20:07)
[2019-04-17] MEDS: ASPIRIN 81 MG ECTAB PO SCH (08:32)
[2019-04-17] MEDS: FUROSEMIDE 40 MG in SYRINGE 0 ML IV SCH (08:32)
--- NOTE | 2019-04-17 09:25 | Pharmacy Report ---
Glycemic Control Progress Note - Date of Service April 17, 2019 - Scope Glycemic Pharmacist consulted for glycemic control to write orders per [facility] inpatient glycemic control protocol. - Objective Accuchecks BSG(last 24 hours):: 04/16/19 04/16/19 04/16/19 11:32 16:01 21:15 Glucose POC Glucose 131 H 149 H 209 H 04/17/19 04/17/19 06:29 07:24 Glucose 167 H POC Glucose 155 H HbA1c:: Hemoglobin A1c 14.8 % (4.5-5.6) H 04/15/19 14:38 - Recent Pertinent Medications The patient is currently receiving: * Basal insulin: Lantus 20 units every 24 hours * Correctional Insulin: Novolog Correction per scale ACHS Goal Range: Low 110 mg/dL - High 140 mg/dL Correction Factor: 25 mg/dL/unit * Prandial insulin: Per carb ratio of 1 unit per 9 grams CHO consumed - Outpatient Anti-Diabetic Meds N/A - Assessment & Plan ASSESSMENT: * See progress note from 04/16/2019 for more background info, in short: * Pt receiving SQ basal bolus insulin regimen for hyperglycemia secondary to new diagnosis of T2DM. * Patient is currently receiving an average of 34 units of insulin per day * 20 units of basal insulin * 14 units of prandial/correctional insulin * BSGs ranging 109 - 209 mg/dl over the past 24hrs * Changes needed to insulin regimen: * AM Fasting BSG = 155 mg/dl. This is slightly above goal range for patient based on inpatient targets and co-morbidities. Therefore Basal insulin will be increased by 20% to 25 units. * Post-prandial BSGs rise throughout the day therefore need to tighten CF/CR. * Total daily dose = ~40 units. PLAN FOR INPATIENT GLYCEMIC CONTROL: * Increasing Lantus to 25 units SQ HS * TIGHTENING correction factor to 20 mg/dl/unit * TIGHTENING carb ratio to 1 unit per 7 grams CHO consumed * Continuing goal range of Low 110 mg/dL - High 140 mg/dL * Please note that the plan above was derived based on current level of insulin resistance and hospital stress. These recommendations are appropriate for inpatient admission only. Plan of care upon discharge will need to be reassessed to avoid potential outpatient hypo/hyperglycemia. Thank you.
--- NOTE | 2019-04-17 10:55 | Hospitalist Progress Note ---
Date of Service April 17, 2019 Assessment & Plan (1) Acute systolic (congestive) heart failure: Acute decompensated CHF with severe systolic dysfunction: Patient presents with months history of shortness of breath, dyspnea on exertion, Significantly volume overload-symptoms has been ongoing for past several months Echocardiogram demonstrates diffuse LV dysfunction EF 15 to 20% without specific wall motion abnormality. Chest x-ray shows bilateral pulmonary congestion/with layering of pleural effusion right greater than left/cardiomegaly proBNP 2827 Bilateral lower extreme pitting edema, positive ascites Appreciate input from cardiology, Patient is continued with aggressive diuresis with : Lasix dose increased to 60 mg IV 3 times daily, metoprolol succinate increased to 12.5 mg twice daily No evidence of acute [place], or acute ischemic event leading to systolic dysfunction, her presentation has been chronic ongoing for the past several months Type 2 diabetes Presented with hyperglycemia-no prior diagnosis, was not on any antidiabetic medication BSG on presentation 325, with elevated beta hydroxybutyric acid 4.80 Normal anion gap, normal bicarb Hemoglobin A1c more than 14 Patient is started on basal Lantus, insulin sliding scale Pharmacy consulted for glycemic management, appreciate input adaptive physical educator consulted Hypertension: Blood pressure stable, continue with Lasix, for IV diuresis, started on low-dose JEFF inhibitor and beta-antoinette for CHF Discharge paperwork patient will be switched to oral Lasix, Will need to follow-up with heart failure clinic Ascites/increased abdominal girth Noted with volume overload/anasarca secondary to biventricular heart failure Volume status continues to improve with diuresis Very likely due to decompensated CHF(unknown ejection fraction-no prior echo)- volume overload with third spacing fluids Echo shows severe H systolic cardiomyopathy with EF 15-20% Continue with diuresis with Lasix dose increased to 60 mg IV 3 times daily Normal LFTs, Patient reports improvement of abdominal discomfort swelling after getting IV Lasix Hypokalemia Stable secondary to diuresis, Replacement ordered, follow BMP CODE STATUS: Discussed with patient, does not want any life support or resuscitation, DNR DNI DVT prophylaxis: Moderate to high risk subcu heparin Disposition; Expected to be discharged home when medically stable Admission and Anticipated Discharge Date Admission Date: April 15, 2019 Subjective Patient reports of feeling much better, does not have any orthopnea Has minimum cough, no dyspnea on exertion, Normal distention has improved markedly, minimal bilateral lower extremity edema Denies of any chest pain no chest heaviness Review of Systems Constitutional: no fever and no chills Cardiovascular: + edema; no syncope Neurologic: + generalized weakness, + dizziness and + syncope Physical Exam Constitutional: WD/WN, vitals as above + ill appearing and + obese; no acute distress Eyes: PERRL, conjunctivae normal, anicteric sclerae ENMT: external ear and nose normal, oropharynx normal Neck: trachea midline, no thyromegaly Respiratory: normal respiratory effort Auscultation: + crackles and + rales (Bilateral rales , more prominent at base) Cardiovascular: Rate/Rhythm: regular rate and regular rhythm Extremities: + pedal edema and + edema (Bilateral 3+ pitting edema); no calf tenderness Gastrointestinal (Abdomen): Inspection/Auscultation: + abdomen distended and normal bowel sounds Percussion/Palpation: abdomen soft and + ascites; abdomen nontender Musculoskeletal: no cyanosis or clubbing, extremities motor strength 5/5 Skin: no rashes, warm and dry Neurologic: PERRL, EOMI, accommodation nl, no face palsy, no dysarthria Psychiatric: A+Ox3, euthymic affect Results & Data ([facility]) Vital Signs (Past 12 Hours) Vital Signs Temp Pulse Resp BP Pulse Ox 04/17/19 07:26 36.5 C 103 H 18 115/82 95 04/17/19 03:35 36.7 C 108 H 18 125/85 93 04/16/19 23:05 36.8 C 111 H 18 126/85 90
--- NOTE | 2019-04-17 11:51 | Cardiology Progress Note ---
Date of Service April 17, 2019 Assessment & Plan (1) Acute systolic (congestive) heart failure: Echocardiogram demonstrates diffuse LV dysfunction EF 15 to 20% without specific wall motion abnormality. Patient presents with acute on probable chronic decompensated heart failure several months duration. No overt inciting cause. Plan continue diuresis. Optimize medical regimen. JEFF inhibitor begun this morning will initiate low-dose CHF indicated beta-antoinette. Follow closely in hospital with further evaluation depending on clinical course. Hemodynamically patient appears to be tolerating diuretics at this time Current etiology ill-defined initial presentation does not suggest acute ischemic heart disease. Thyroid function normal. No proteinuria or hepatic dysfunction Diuresis beginning but still slow. Will increase furosemide to 60 mg IV 3 times daily. Increase metoprolol succinate to 12.5 mg twice daily Add low-dose oxygen given mild desaturation noted at night (2) Anasarca: Secondary to biventricular heart failure Subjective Patient seen and examined, chart, medications, telemetry reviewed. Patient notes some diuresis yesterday but still with significant abdominal bloating and lower extremity edema. No dizziness or lightheadedness. No tachypalpitations. Rhythm only sinus tachycardia on telemetry Review of Systems Review of Systems: All systems reviewed & are unremarkable except as noted in HPI & below Physical Exam Constitutional: WD/WN, vitals as above + obese; no acute distress Eyes: PERRL, conjunctivae normal, anicteric sclerae ENMT: external ear and nose normal, oropharynx normal Neck: trachea midline, no thyromegaly Respiratory: normal respiratory effort, lungs clear to auscultation Auscultation: + diminished lung sounds (Greater in right base) Cardiovascular: Rate/Rhythm: regular rate and regular rhythm Heart Sounds: normal S1, normal S2, + gallop and + murmur (Grade 1/6 systolic murmur right lower sternal border) Palpation: + heave Vessels: + JVD, normal carotid upstroke and radial pulses present; no carotid bruit Extremities: + edema (3+ anasarca edema to the thighs and abdomen) Gastrointestinal (Abdomen): normal bowel sounds, soft, nontender, no hepatosplenomegaly Musculoskeletal: no cyanosis or clubbing, extremities motor strength 5/5 Skin: no rashes, warm and dry Neurologic: PERRL, EOMI, accommodation nl, no face palsy, no dysarthria Psychiatric: A+Ox3, euthymic affect Results & Data Vital Signs (Past 12 Hours) Vital Signs Temp Pulse Resp BP Pulse Ox 04/17/19 11:24 36.6 C 103 H 18 126/75 95 04/17/19 07:26 36.5 C 103 H 18 115/82 95 04/17/19 03:35 36.7 C 108 H 18 125/85 93
[2019-04-17] MEDS: FUROSEMIDE 60 MG in SYRINGE 0 ML IV SCH ×2 (14:56→20:07)
--- NOTE | 2019-04-17 16:51 | Electrocardiogram Report ---
Test Reason : Blood Pressure : / mmHG Vent. Rate : 105 BPM Atrial Rate : 105 BPM P-R Int : 198 ms QRS Dur : 092 ms QT Int : 342 ms P-R-T Axes : 080 095 021 degrees QTc Int : 452 ms Sinus tachycardia Rightward axis Low voltage QRS Nonspecific T wave abnormality Abnormal ECG When compared with ECG of 16-APR-2019 07:35, Nonspecific T wave abnormality no longer evident in Anterior leads Confirmed by Dustin Espino ([id number]) on 04/17/2019 4:51:09 PM Referred By: REFERRED SELF Confirmed By:Casimiro Espino
[2019-04-17] MEDS ORDERED: METOPROLOL SUCC 25MG EXT REL TAB PO SCH (17:00)
[2019-04-17] MEDS ORDERED: INSULIN GLARGINE SOLOSTAR 100 UNITS/ML 3 ML PEN SC SCH (21:00)
[2019-04-17] MEDS ORDERED: METOPROLOL SUCC 25MG EXT REL TAB PO ONE (22:15)
[2019-04-18] MEDS: HEPARIN SOD 5,000 UNIT/0.5 ML VIAL SQ SCH ×4 (00:06→20:58)
[2019-04-18 08:34] LABS: BUN Creatinine Ratio 17.6 (10-20); Calcium 9.2 mg/dl (8.5-10.1); Creatinine Clr Calc Pharmacy 116.5 ml/min; Est GFR (African American) 114.5; Est GFR (Non-African American) 98.8; Potassium 3.6 mmol/L (3.5-5.1)
[2019-04-18] MEDS: INSULIN ASPART 100 UNITS/ML 3 ML PEN SC SCH ×4 (08:45→20:44)
[2019-04-18] MEDS: POTASSIUM CHLORIDE 20 MEQ TABCR PO SCH ×2 (08:46→20:58)
[2019-04-18] MEDS: METOPROLOL SUCC 25MG EXT REL TAB PO SCH ×2 (08:46→17:11)
[2019-04-18] MEDS: ASPIRIN 81 MG ECTAB PO SCH (08:46)
[2019-04-18] MEDS: lisinopriL 5 MG TAB PO SCH (08:46)
[2019-04-18] MEDS: FUROSEMIDE 60 MG in SYRINGE 0 ML IV SCH ×3 (08:47→20:58)
--- NOTE | 2019-04-18 09:26 | Cardiology Progress Note ---
Date of Service April 18, 2019 Assessment & Plan (1) Acute systolic (congestive) heart failure: Echocardiogram demonstrates diffuse LV dysfunction EF 15 to 20% without specific wall motion abnormality. Patient presents with acute on probable chronic decompensated heart failure several months duration. No overt inciting cause. Plan continue diuresis. Optimize medical regimen. JEFF inhibitor begun this morning will initiate low-dose CHF indicated beta-antoinette. Follow closely in hospital with further evaluation depending on clinical course. Hemodynamically patient appears to be tolerating diuretics at this time New onset diagnosis of diffuse cardiomyopathy. Patient clinically improving with ultimate goals optimizing medical therapy. Will increase metoprolol succinate to 25 mg twice per day continue IV diuretics, JEFF inhibitor. We will add spironolactone to her regimen and supplement potassium Continue telemetry DVT prophylaxis (2) Anasarca: Secondary to biventricular heart failure Subjective Patient was seen and examined, chart, medications, telemetry reviewed. No chest pain or shortness of breath edema and abdominal bloating less prominent still significant peripheral edema. No tachyarrhythmias but sinus tachycardia present tolerating medications and diuresis from blood pressure standpoint. No significant arrhythmias on monitor. Review of Systems Review of Systems: All systems reviewed & are unremarkable except as noted in HPI & below Physical Exam Constitutional: WD/WN, vitals as above + obese; no acute distress Eyes: PERRL, conjunctivae normal, anicteric sclerae ENMT: external ear and nose normal, oropharynx normal Neck: trachea midline, no thyromegaly Respiratory: normal respiratory effort, lungs clear to auscultation Auscultation: + diminished lung sounds (Greater in right base) Cardiovascular: Rate/Rhythm: regular rate and regular rhythm Heart Sounds: normal S1, normal S2, + gallop and + murmur (Grade 1/6 systolic murmur right lower sternal border) Palpation: + heave Vessels: + JVD, normal carotid upstroke and radial pulses present; no carotid bruit Extremities: + edema (3+ anasarca edema to the thighs and abdomen) Gastrointestinal (Abdomen): normal bowel sounds, soft, nontender, no hepatosplenomegaly Musculoskeletal: no cyanosis or clubbing, extremities motor strength 5/5 Skin: no rashes, warm and dry Neurologic: PERRL, EOMI, accommodation nl, no face palsy, no dysarthria Psychiatric: A+Ox3, euthymic affect Results & Data Vital Signs (Past 12 Hours) Vital Signs Temp Pulse Resp BP Pulse Ox 04/18/19 07:11 36.5 C 100 H 17 121/83 96 04/18/19 04:02 36.6 C 100 H 16 117/80 95 04/17/19 22:58 36.6 C 99 H 16 122/77 95 Laboratory Results Laboratory Results - last 24 hr 04/17/19 04/17/19 04/17/19 11:23 16:44 20:24 Sodium Potassium Chloride Carbon Dioxide Anion Gap BUN Creatinine Est Cr Clr Drug Dosing Est GFR ( Amer) Est GFR (Non-Af Amer) BUN/Creatinine Ratio Glucose POC Glucose 162 H 130 H 189 H Calcium 04/18/19 04/18/19 07:12 07:44 Sodium 140 Potassium 3.6 Chloride 102 Carbon Dioxide 31 Anion Gap 6.0 BUN 12 Creatinine 0.66 Est Cr Clr Drug Dosing 116.5 Est GFR ( Amer) 114.5 Est GFR (Non-Af Amer) 98.8 BUN/Creatinine Ratio 17.6 Glucose 96 POC Glucose 106 H Calcium 9.2
[2019-04-18] MEDS ORDERED: INSULIN GLARGINE SOLOSTAR 100 UNITS/ML 3 ML PEN SC ONE (11:45)
[2019-04-18] MEDS: SPIRONOLACTONE 25 MG TAB PO SCH (11:51)
--- NOTE | 2019-04-18 13:48 | Pharmacy Report ---
Pharmacy Glycemic Short Note 2 - Date of Service April 18, 2019 - Glycemic Short BSG Results (Last 24 hours): 04/17/19 04/17/19 04/18/19 16:44 20:24 07:12 Glucose POC Glucose 130 H 189 H 106 H 04/18/19 04/18/19 07:44 11:12 Glucose 96 POC Glucose 136 H Outpatient Anti-diabetic Regimen: * N/A * HbA1c 14.8 % on 04/15/19 The patient is currently receiving: * Basal insulin: Lantus 25 units SC qHS * Correctional Insulin: Novolog Correction per scale ACHS Goal Range: Low 110 mg/dL - High 140 mg/dL Correction Factor: 20 mg/dL/unit * Prandial insulin: Per carb ratio of 1 unit per 7 grams CHO consumed Risk Factors for Insulin Resistance: * Diet: T2DM Assessment * 58 yo F with poorly controlled T2DM not on any outpatient antihyperglycemic medications. * Per Sahra PARTIDA) - diagnosed with T2DM seven years ago (was on metformin x2 years then stopped) * BSG's now well controlled. However, will make significant adjustments to inpatient regimen to aid with eventual transition to recommended outpatient regimen (see below) PLAN FOR INPATIENT GLYCEMIC CONTROL: * Hold outpatient oral diabetes medications * Basal insulin * Lantus 10 units SQ x1 now * Plan to transition to NPH qAM tomorrow AM (dose dependent on BSG's today) * Bolus insulin * NovoLog per scale ACHS or Q6hrs while NPO * Goal Range: Low 110 mg/dL - High 140 mg/dL * Correction Factor: 20 mg/dL/unit * Nutritional / Prandial insulin per carb ratio of 1 unit per 9 grams CHO consumed PLAN FOR DISCHARGE: * Discussed outpatient considerations with Sahra PARTIDA) - patient is [place] and is self-pay. Other members of her community use insulin. Patient notes she is willing to "do whatever", including SC insulin. Plan to obtain prescriptions and products from [facility] on discharge. Therefore recommend the following: * Initiate Novolin N (insulin NPH) SC qAM with breakfast - dose to be determined based on inpatient trend in BSG * Metformin ER 500 mg po daily, with recommendation to titrate up as tolera alicja per outpatient provider. Metformin ER is on the [facility] $4 list * Obtain BSG monitor from [facility]. Check BSG's twice daily (before breakfast and before dinner). Keep a record of all dates/times/BSG values and bring to next outpatient appointment.
--- NOTE | 2019-04-18 15:41 | Hospitalist Progress Note ---
Date of Service April 18, 2019 Assessment & Plan (1) Acute systolic (congestive) heart failure: Acute decompensated CHF with severe systolic dysfunction/HFrEF : Patient presents with months history of shortness of breath, dyspnea on exertion, Admitted with significantly volume overload-symptoms has been ongoing for past several months Echocardiogram demonstrates diffuse LV dysfunction EF 15 to 20% without specific wall motion abnormality. Chest x-ray shows bilateral pulmonary congestion/with layering of pleural effusion right greater than left/cardiomegaly proBNP 2827 Presented with bilateral lower extreme pitting edema, positive ascites-improved with ascites Appreciate input from cardiology, Patient is continued with aggressive diuresis with : Lasix dose increased to 60 mg IV 3 times daily, -pt been diuresed approximately 5.8 L of fluid since admission Continue on low-dose lisinopril, Metoprolol succinate dose adjusted 25 mg twice daily -by cardiology Addition of Aldactone will be ordered Continue to monitor in telemetry Type 2 diabetes Presented with hyperglycemia-no prior diagnosis, was not on any antidiabetic medication BSG on presentation 325, with elevated beta hydroxybutyric acid 4.80 Normal anion gap, normal bicarb Hemoglobin A1c more than 14 Patient is started on basal Lantus, insulin sliding scale Pharmacy consulted for glycemic management, appreciate input primary special educator consulted-appreciate input, Given hemoglobin A1c 14 patient will need insulin treatment, This patient's will be paying [id number] for her medication, patient will be discharged with [facility] [employer] NovoLin 70/30 insulin in AM on PO . Metformin twice daily ( which is in [facility] 4$ prescription plan ) Patient is given teaching using vial and syringe, Hypertension: Blood pressure stable, continue with Lasix, for IV diuresis, started on low-dose JEFF inhibitor and beta-antoinette for CHF Discharge paperwork patient will be switched to oral Lasix, Will need to follow-up with heart failure clinic Ascites/increased abdominal girth Noted with volume overload/anasarca secondary to biventricular heart failure Volume status continues to improve with diuresis Very likely due to decompensated CHF(unknown ejection fraction-no prior echo)- volume overload with third spacing fluids Echo shows severe H systolic cardiomyopathy with EF 15-20% Continue with diuresis with Lasix dose increased to 60 mg IV 3 times daily Normal LFTs, Patient reports improvement of abdominal discomfort swelling after getting IV Lasix Hypokalemia secondary to diuresis, Replacement ordered, follow BMP CODE STATUS: Discussed with patient, does not want any life support or resuscitation, DNR DNI DVT prophylaxis: Moderate to high risk subcu heparin Disposition; Expected to be discharged home when medically stable Admission and Anticipated Discharge Date Admission Date: April 15, 2019 Subjective Patient reports of breathing much better, no orthopnea, abdominal distention has improved, No cough no fever or chills, No chest pain or chest heaviness Inquiring when she can be discharged home Family members present at bedside Review of Systems Cardiovascular: + edema (Improved); no chest pain, no dyspnea, no dyspnea on exertion, no orthopnea, no palpitations, no lightheadedness and no syncope Physical Exam Constitutional: WD/WN, vitals as above no acute distress Eyes: PERRL, conjunctivae normal, anicteric sclerae ENMT: external ear and nose normal, oropharynx normal Neck: trachea midline, no thyromegaly Respiratory: normal respiratory effort Cardiovascular: Rate/Rhythm: regular rate and regular rhythm Extremities: no calf tenderness Gastrointestinal (Abdomen): Inspection/Auscultation: + abdomen distended and normal bowel sounds Percussion/Palpation: abdomen soft; abdomen nontender Musculoskeletal: no cyanosis or clubbing, extremities motor strength 5/5 Skin: no rashes, warm and dry Neurologic: PERRL, EOMI, accommodation nl, no face palsy, no dysarthria Psychiatric: A+Ox3, euthymic affect Results & Data ([facility]) Vital Signs (Past 12 Hours) Vital Signs Temp Pulse Pulse Resp BP Pulse Ox 04/18/19 15:27 103 H 04/18/19 15:23 36.4 C L 107 H 20 113/78 95 04/18/19 11:11 36.5 C 100 H 16 118/80 97 04/18/19 08:00 100 H 04/18/19 07:11 36.5 C 100 H 17 121/83 96 04/18/19 04:02 36.6 C 100 H 16 117/80 95
[2019-04-18] MEDS ORDERED: INSULIN ASPART 100 UNITS/ML 3 ML PEN SC SCH (16:30)
[2019-04-19] MEDS: HEPARIN SOD 5,000 UNIT/0.5 ML VIAL SQ SCH ×3 (06:11→20:42)
[2019-04-19] MEDS: ASPIRIN 81 MG ECTAB PO SCH (07:53)
[2019-04-19] MEDS: SPIRONOLACTONE 25 MG TAB PO SCH (07:53)
[2019-04-19] MEDS: METOPROLOL SUCC 25MG EXT REL TAB PO SCH ×3 (07:54→20:41)
[2019-04-19] MEDS: lisinopriL 5 MG TAB PO SCH (07:54)
[2019-04-19] MEDS: FUROSEMIDE 60 MG in SYRINGE 0 ML IV SCH ×3 (07:54→20:41)
[2019-04-19] MEDS: POTASSIUM CHLORIDE 20 MEQ TABCR PO SCH ×2 (07:54→20:41)
[2019-04-19] MEDS: INSULIN ASPART 100 UNITS/ML 3 ML PEN SC SCH ×4 (07:56→20:43)
[2019-04-19] MEDS ORDERED: NovoLIN-N (NPH) PER UNIT CHARGE SQ ONE (08:45)
--- NOTE | 2019-04-19 08:47 | Pharmacy Report ---
Pharmacy Glycemic Short Note 2 - Date of Service April 19, 2019 - Glycemic Short BSG Results (Last 24 hours): 04/18/19 04/18/19 04/18/19 11:12 16:13 19:50 POC Glucose 136 H 144 H 116 H 04/19/19 07:26 POC Glucose 89 Outpatient Anti-diabetic Regimen: * N/A * HbA1c 14.8 % on 04/15/19 Assessment * 58 yo F with poorly controlled T2DM not on any outpatient antihyperglycemic medications. * Per Sahra PARTIDA) - diagnosed with T2DM seven years ago (was on metformin x2 years then stopped) * Patient required significantly less insulin yesterday total of 21 units compared to total of 47 units the day before. * Yesterday, she received 10 units of Lantus and 11 units of bolus Novolog. Fasting BSG today is 89. * Plan for patient to be discharged today on Novolin NPH. * Post-prandial BSGs were within goal yesterday. PLAN FOR INPATIENT GLYCEMIC CONTROL: * Basal insulin * NPH 10 units SQ x1 now with breakfast. * Bolus insulin: loosened CR * NovoLog per scale ACHS or Q6hrs while NPO * Goal Range: Low 110 mg/dL - High 140 mg/dL * Correction Factor: 20 mg/dL/unit * Nutritional / Prandial insulin per carb ratio of 1 unit per 10 grams CHO consumed PLAN FOR DISCHARGE: * Discussed outpatient considerations with Sarha PARTIDA) - patient is Orthodox and is self-pay. Other members of her community use insulin. Patient notes she is willing to "do whatever", including SC insulin. Plan to obtain prescriptions and products from [facility] on discharge. Therefore recommend the following: * Initiate Novolin N (insulin NPH) SQ qAM with breakfast - dose based on fasting BSG as follows: - if Fasting BSG is less than 150: then take 10 units SQ of Novolin NPH with breakfast. - if Fasting BSG is greater than or equal to 150: then take 15 units SQ of Novolin NPH with breakfast. * Titrate insulin up as tolerated per outpatient provider. * Metformin ER 500 mg po daily with morning or evening meal, with recommendation to titrate up as tolerated per outpatient provider. Metformin ER is on the [employer] $4 list * Obtain BSG monitor from [facility]. Check BSG's twice daily (before breakfast and before dinner). Keep a record of all dates/times/BSG values and bring to next outpatient appointment.
--- NOTE | 2019-04-19 13:28 | Cardiology Progress Note ---
Date of Service April 19, 2019 Assessment & Plan (1) Acute systolic (congestive) heart failure: Echocardiogram demonstrates diffuse LV dysfunction EF 15 to 20% without specific wall motion abnormality. Patient presents with acute on probable chronic decompensated heart failure several months duration. No overt inciting cause. Plan continue diuresis. Optimize medical regimen. JEFF inhibitor begun this morning will initiate low-dose CHF indicated beta-antoinette. Follow closely in hospital with further evaluation depending on clinical course. Hemodynamically patient appears to be tolerating diuretics at this time New onset diagnosis of diffuse cardiomyopathy. Patient clinically improving with ultimate goals optimizing medical therapy. Will once again increase metoprolol succinate to 25 mg 3 times per day Continue telemetry DVT prophylaxis Check BMP today to reassess potassium levels on addition of spironolactone We will hold IV diuretics after p.m. dose this evening (2) Anasarca: Secondary to biventricular heart failure Subjective Patient seen and examined, chart, medications, telemetry reviewed. Patient feels improved and had brisk diuresis yesterday. Less dyspneic less ab dominal bloating. Lower extremity edema improving No arrhythmias on telemetry Physical Exam Constitutional: WD/WN, vitals as above + obese; no acute distress Eyes: PERRL, conjunctivae normal, anicteric sclerae ENMT: external ear and nose normal, oropharynx normal Neck: trachea midline, no thyromegaly Respiratory: normal respiratory effort, lungs clear to auscultation Auscultation: + diminished lung sounds (Greater in right base) Cardiovascular: Rate/Rhythm: regular rate and regular rhythm Heart Sounds: normal S1, normal S2, + gallop and + murmur (Grade 1/6 systolic murmur right lower sternal border) Palpation: + heave Vessels: + JVD, normal carotid upstroke and radial pulses present; no carotid bruit Extremities: + edema (3+ anasarca edema to the thighs and abdomen) Gastrointestinal (Abdomen): normal bowel sounds, soft, nontender, no hepatosplenomegaly Musculoskeletal: no cyanosis or clubbing, extremities motor strength 5/5 Skin: no rashes, warm and dry Neurologic: PERRL, EOMI, accommodation nl, no face palsy, no dysarthria Psychiatric: A+Ox3, euthymic affect Results & Data Vital Signs (Past 12 Hours) Vital Signs Temp Pulse Resp BP Pulse Ox 04/19/19 11:11 36.6 C 95 H 16 126/86 98 04/19/19 07:28 36.6 C 96 H 17 130/89 93 04/19/19 03:55 36.5 C 100 H 18 112/76 92 Laboratory Results Laboratory Results - last 24 hr 04/18/19 04/18/19 04/19/19 16:13 19:50 07:26 POC Glucose 144 H 116 H 89 04/19/19 11:09 POC Glucose 129 H
[2019-04-19 14:54] LABS: BUN Creatinine Ratio 19.7 (10-20); Calcium 9.1 mg/dl (8.5-10.1); Creatinine Clr Calc Pharmacy 102.1 ml/min; Est GFR (Non-African American) 90.6; Potassium 3.9 mmol/L (3.5-5.1)
--- NOTE | 2019-04-19 18:47 | Hospitalist Progress Note ---
Date of Service April 19, 2019 Assessment & Plan (1) Acute systolic (congestive) heart failure: Acute decompensated CHF with severe systolic dysfunction/HFrEF : Patient presents with months history of shortness of breath, dyspnea on exertion, Admitted with significantly volume overload-symptoms has been ongoing for past several months Echocardiogram demonstrates diffuse LV dysfunction EF 15 to 20% without specific wall motion abnormality. Chest x-ray shows bilateral pulmonary congestion/with layering of pleural effusion right greater than left/cardiomegaly proBNP 2827 Presented with bilateral lower extreme pitting edema, positive ascites-improved with ascites Appreciate input from cardiology, Patient was treated with IV Lasix diuresis 60 mg 3 times daily, evening dose kept on hold by cardiology today -pt been diuresed approximately 5.8 L of fluid since admission Continue on low-dose lisinopril, Added Aldactone 25 mg p.o. 3 times daily Beta antoinette dose increased to metoprolol succinate to 25 mg 3 times per day-by cardiology Continue telemetry Type 2 diabetes Presented with hyperglycemia-no prior diagnosis, was not on any antidiabetic medication BSG on presentation 325, with elevated beta hydroxybutyric acid 4.80 Normal anion gap, normal bicarb Hemoglobin A1c more than 14 Patient is started on basal Lantus, insulin sliding scale Pharmacy consulted for glycemic management, appreciate input software educator consulted-appreciate input, Given hemoglobin A1c 14 patient will need insulin treatment, This patient's will be paying [id number] for her medication, patient will be discharged with [facility] brand [employer] brand Novolin ( 25$ ) on PO . Metformin twice daily ( which is in [facility] 4$ prescription plan ) Patient is given teaching using vial and syringe, Hypertension: Blood pressure stable, continue with Lasix, for IV diuresis, started on low-dose JEFF inhibitor and beta-antoinette for CHF on Discharge patient will be switched to oral Lasix, Patient is from [facility], without medical insurance, all her medications will be [id number] We will try to utilize [employer] $4 prescription plan, good Rx prescription coupon to minimize prescription drug cost Will need to follow-up with heart failure clinic Ascites/increased abdominal girth Noted with volume overload/anasarca secondary to biventricular heart failure Volume status continues to improve with diuresis Very likely due to decompensated CHF(unknown ejection fraction-no prior echo)- volume overload with third spacing fluids Echo shows severe H systolic cardiomyopathy with EF 15-20% Adequate diuresis with IV Lasix, dose on hold today, patient reports of improved abdominal distention, discomfort and lower extremity swelling CODE STATUS: Discussed with patient, does not want any life support or resuscitation, DNR DNI DVT prophylaxis: Moderate to high risk subcu heparin Disposition; Expected to be discharged home when medically stable Admission and Anticipated Discharge Date Admission Date: April 15, 2019 Subjective continues to feel well SOB /orthopena has resolved no PYLE no cough Review of Systems Respiratory: + cough, + dyspnea and + dyspnea on exertion Cardiovascular: + edema (Improved); no chest pain, no dyspnea, no dyspnea on exertion, no orthopnea, no palpitations, no lightheadedness and no syncope Physical Exam Constitutional: WD/WN, vitals as above no acute distress Eyes: PERRL, conjunctivae normal, anicteric sclerae ENMT: external ear and nose normal, oropharynx normal Neck: trachea midline, no thyromegaly Respiratory: normal respiratory effort Cardiovascular: Rate/Rhythm: regular rate and regular rhythm Extremities: no calf tenderness Gastrointestinal (Abdomen): Inspection/Auscultation: + abdomen distended and normal bowel sounds Percussion/Palpation: abdomen soft; abdomen nontender Musculoskeletal: no cyanosis or clubbing, extremities motor strength 5/5 Skin: no rashes, warm and dry Neurologic: PERRL, EOMI, accommodation nl, no face palsy, no dysarthria Psychiatric: A+Ox3, euthymic affect Results & Data ([facility]) Vital Signs (Past 12 Hours) Vital Signs Temp Pulse Resp BP Pulse Ox 04/19/19 15:15 36.4 C L 100 H 20 121/83 97 04/19/19 11:11 36.6 C 95 H 16 126/86 98 04/19/19 07:28 36.6 C 96 H 17 130/89 93
[2019-04-20] MEDS: HEPARIN SOD 5,000 UNIT/0.5 ML VIAL SQ SCH ×2 (05:52→13:11)
[2019-04-20] MEDS ORDERED: INSULIN HUMAN NPH SC SCH (07:30)
[2019-04-20 07:35] LABS: BUN Creatinine Ratio 20.3 (10-20); Calcium 9.2 mg/dl (8.5-10.1); Creatinine Clr Calc Pharmacy 94.7 ml/min; Est GFR (African American) 98.5; Potassium 3.7 mmol/L (3.5-5.1)
[2019-04-20] MEDS: INSULIN ASPART 100 UNITS/ML 3 ML PEN SC SCH ×2 (08:05→12:53)
[2019-04-20] MEDS: POTASSIUM CHLORIDE 20 MEQ TABCR PO SCH (08:06)
[2019-04-20] MEDS: ASPIRIN 81 MG ECTAB PO SCH (08:06)
[2019-04-20] MEDS: SPIRONOLACTONE 25 MG TAB PO SCH (08:06)
[2019-04-20] MEDS: METOPROLOL SUCC 25MG EXT REL TAB PO SCH (08:06)
[2019-04-20] MEDS: lisinopriL 5 MG TAB PO SCH (08:07)
[2019-04-20] MEDS ORDERED: METOPROLOL SUCC 25MG EXT REL TAB PO ONE (12:37)
--- NOTE | 2019-04-20 12:42 | Cardiology Progress Note ---
Date of Service April 20, 2019 Assessment & Plan (1) Acute systolic (congestive) heart failure: Echocardiogram demonstrates diffuse LV dysfunction EF 15 to 20% without specific wall motion abnormality. Patient presents with acute on probable chronic decompensated heart failure several months duration. No overt inciting cause. Plan continue diuresis. Optimize medical regimen. JEFF inhibitor begun this morning will initiate low-dose CHF indicated beta-antoinette. Follow closely in hospital with further evaluation depending on clinical course. Hemodynamically patient appears to be tolerating diuretics at this time New onset diagnosis of diffuse cardiomyopathy. Patient clinically improving with ultimate goals optimizing medical therapy. Will once again increase metoprolol succinate to 25 mg 3 times per day Patient anxious to be discharged. Still mildly volume overload but improving. Recommendations: CHF instructions with daily weights Continue guideline directed optimal CHF regimen. Increase Toprol-XL to 50 mg twice per day, continue lisinopril 5 mg/day, furosemide 40 mg twice per day, spironolactone 25 g p.o. daily, baby aspirin 81 mg/day Will need to consider ischemic work-up depending on clinical course. Presentation does not suggest ischemic cardiomyopathy Follow-up with primary care physician in the next weeks time with repeat BMP Will make arrangements for patient to be seen through [facility] cardiology [place] (2) Anasarca: Secondary to biventricular heart failure clinically improved Subjective Patient seen and examined, chart, medications, telemetry reviewed. Patient feels substantially improved since admission though still with bilateral lower extremity edema. No arrhythmias on telemetry. No dizziness or lightheadedness. Ambulatory in room. Review of Systems Review of Systems: All systems reviewed & are unremarkable except as noted in HPI & below Physical Exam Constitutional: WD/WN, vitals as above + obese; no acute distress Eyes: PERRL, conjunctivae normal, anicteric sclerae ENMT: external ear and nose normal, oropharynx normal Neck: trachea midline, no thyromegaly Respiratory: normal respiratory effort, lungs clear to auscultation Auscultation: + diminished lung sounds (Greater in right base) Cardiovascular: Rate/Rhythm: regular rate and regular rhythm Heart Sounds: normal S1, normal S2, + gallop and + murmur (Grade 1/6 systolic murmur right lower sternal border) Palpation: + heave Vessels: + JVD, normal carotid upstroke and radial pulses present; no carotid bruit Extremities: + edema (2+) Gastrointestinal (Abdomen): normal bowel sounds, soft, nontender, no hepatosplenomegaly Musculoskeletal: no cyanosis or clubbing, extremities motor strength 5/5 Skin: no rashes, warm and dry Neurologic: PERRL, EOMI, accommodation nl, no face palsy, no dysarthria Psychiatric: A+Ox3, euthymic affect Results & Data Vital Signs (Past 12 Hours) Vital Signs Temp Pulse Resp BP Pulse Ox 04/20/19 11:23 36.5 C 92 H 18 120/84 96 04/20/19 07:22 36.5 C 93 H 18 124/85 94 04/20/19 03:25 36.5 C 95 H 20 116/80 95 Laboratory Results Laboratory Results - last 24 hr 04/19/19 04/19/19 04/19/19 14:11 16:07 20:08 Sodium 139 Potassium 3.9 Chloride 103 Carbon Dioxide 28 Anion Gap 8.0 BUN 15 Creatinine 0.74 Est Cr Clr Drug Dosing 102.1 Est GFR ( Amer) 105.0 Est GFR (Non-Af Amer) 90.6 BUN/Creatinine Ratio 19.7 Glucose 142 H POC Glucose 112 H 120 H Calcium 9.1 04/20/19 04/20/19 04/20/19 06:06 07:24 11:22 Sodium 140 Potassium 3.7 Chloride 101 Carbon Dioxide 31 Anion Gap 8.0 BUN 16 Creatinine 0.78 Est Cr Clr Drug Dosing 94.7 Est GFR ( Amer) 98.5 Est GFR (Non-Af Amer) 85.0 BUN/Creatinine Ratio 20.3 H Glucose 107 H POC Glucose 106 H 153 H Calcium 9.2
--- NOTE | 2019-04-20 14:25 | Pharmacy Report ---
Pharmacy Glycemic Short Note 2 - Date of Service April 20, 2019 - Glycemic Short BSG Results (Last 24 hours): 04/19/19 04/19/19 04/19/19 14:11 16:07 20:08 Glucose 142 H POC Glucose 112 H 120 H 04/20/19 04/20/19 04/20/19 06:06 07:24 11:22 Glucose 107 H POC Glucose 106 H 153 H Outpatient Anti-diabetic Regimen: * N/A * HbA1c 14.8 % on 04/15/19 Assessment * Patient received total of 19 units yesterday: 10 units of NPH and 9 units of bolus. * Fasting BSG today was 106. Will continue with same NPH dosing as yesterday. * Plan for patient to be discharged on Novolin NPH. * Post-prandial BSGs were within goal yesterday. It was slightly elevated at lunch today. Tightened Novolog CR slightly. PLAN FOR INPATIENT GLYCEMIC CONTROL: * Basal insulin * NPH SQ daily with breakfast- dose based on scale as follows: - for BSG less than 150- give 10 units; - for BSG 150 or greater- give 15 units * Bolus insulin: tightened CR * NovoLog per scale ACHS or Q6hrs while NPO * Goal Range: Low 110 mg/dL - High 140 mg/dL * Correction Factor: 20 mg/dL/unit * Nutritional / Prandial insulin per carb ratio of 1 unit per 8 grams CHO consumed PLAN FOR DISCHARGE: * Discussed outpatient considerations with Sahra (TATIANA) - patient is [employer] and is self-pay. Other members of her community use insulin. Patient notes she is willing to "do whatever", including [place] insulin. Plan to obtain prescriptions and products from [facility] on discharge. Therefore recommend the following: * Initiate Novolin N (insulin NPH) SQ qAM with breakfast - dose based on fasting BSG as follows: - if Fasting BSG is less than 150: then take 10 units SQ of Novolin NPH with breakfast. - if Fasting BSG is greater than or equal to 150: then take 15 units SQ of Novolin NPH with breakfast. * Titrate insulin up as tolerated per outpatient provider. * Metformin ER 500 mg po daily with morning or evening meal, with recommendation to titrate up as tolerated per outpatient provider. Metformin ER is on the [email or web address] $4 list * Obtain BSG monitor from [employer]. Check BSG's twice daily (before breakfast and before dinner). Keep a record of all dates/times/BSG values and bring to next outpatient appointment.
[2019-04-20] MEDS ORDERED: FUROSEMIDE 40 MG TAB PO SCH (17:00)
[2019-04-20] MEDS ORDERED: METOPROLOL SUCC 25MG EXT REL TAB PO SCH (17:00)
[2019-04-21] MEDS ORDERED: POTASSIUM CHLORIDE 20 MEQ TABCR PO SCH (09:00)
--- NOTE | 2019-04-22 13:16 | Discharge Summary ---
Date of Service April 20, 2019 Admission HPI Per Admitting Provider This is a 58-year-old Adventist female who has not been followed with any physician, unknown past medical history, presents to ER with complaints of shortness of breath, progressive dyspnea on exertion, lower extremity swelling, and increased abdominal girth Patient mentioned she has been having feeling of shortness of breath for past several weeks, unable to lie flat at night, has been using 3 pillows, Had occasional cough with whitish sputum, no fever or chills Significantly shortness of breath with minimum ambulation, Chest tightness/chest heaviness associated with severe shortness of breath which resolves after taking rest Noted lower extremity swelling for the same duration, also distention of abdomen, leading to discomfort, worsening of shortness of breath when lying flat Reports of increased fatigue, generalized weakness, poor appetite for past several months Mentions of increased thirst, denies of any increased urination, No nausea vomiting, abdominal discomfort secondary to distention Chest x-ray shows pulmonary vascular congestion, patient has 3+ bilateral pitting edema, with prominent ascites, Blood sugar elevated more than 300, Patient denies of prior history of diabetes, Does not know whether her parents had diabetes or not, one nephew is diagnosed with diabetes on oral meds During my interview, patient denied of any shortness of breath at rest, no chest heaviness, no chest discomfort Admission Exam Per Admitting Provider Constitutional: WD/WN, vitals as above + ill appearing and + obese; no acute distress Eyes: PERRL, conjunctivae normal, anicteric sclerae ENMT: external ear and nose normal, oropharynx normal Neck: trachea midline, no thyromegaly Respiratory: normal respiratory effort Auscultation: + crackles and + rales (Bilateral rales , more prominent at base) Cardiovascular: Rate/Rhythm: regular rate and regular rhythm Vessels: + JVD (Positive JVD) Extremities: + pedal edema and + edema (Bilateral 3+ pitting edema); no calf tenderness Gastrointestinal (Abdomen): Inspection/Auscultation: + abdomen distended and normal bowel sounds Percussion/Palpation: abdomen soft and + ascites; abdomen nontender Musculoskeletal: no cyanosis or clubbing, extremities motor strength 5/5 Skin: no rashes, warm and dry Neurologic: PERRL, EOMI, accommodation nl, no face palsy, no dysarthria Psychiatric: A+Ox3, euthymic affect Principal Diagnosis Acute systolic heart failure Diabetes Type II uncontrolled Discharge Exam CONSTITUTIONAL: obese, generally well-appearing EYES: normal conjunctivae, no scleral icterus ENT: MMM RESPIRATORY: clear to auscultation bilaterally, no crackles, rales or wheezes, normal respiratory effort, no conversational dyspnea CARDIOVASCULAR: regular rate and rhythm, S1 and 2 heard without murmurs, gallops or rubs, no JVD, no peripheral edema GASTROINTESTINAL: soft, nontender, nondistended MUSCULOSKELETAL: strength 5/5 throughout, head is normocephalic and atraumatic SKIN: warm and dry NEUROLOGIC: CN 2-12 grossly intact, normal cognition, no gross focal deficits. PSYCHIATRIC: alert cooperative and oriented to person, place and time. Discharge Data Allergies Allergy/AdvReac Type Severity Reaction Status Date / Time No Known Allergies Allergy Unverified 04/15/19 16:15 Consultations 04/15/19 15:57 ED Decision to Admit Stat 04/15/19 18:33 Consult Cardiology Routine Consult Case Management - Discharge Planning Routine Hospital Course (1) Acute systolic (congestive) heart failure: 58-year-old female presented with shortness of breath. Work-up included a chest x-ray revealing bilateral pulmonary congestion with layering effusions. A proBNP was 2827. She was given Lasix 40 mg IV in the ER and admitted to the hospitalist service. Cardiology was consulted. Serial cardiac enzymes were trended and negative. Echocardiogram revealed an ejection fraction of 15 to 20% with severe global hypokinesis of the left ventricle no regional wall motion abnormalities noted. Grade III diastolic dysfunction present consistent with market congestive heart failure. Moderate to severe tricuspid regurgitation was seen. Cardiology recommended continuing diuresis and optimizing medical management with initiation of an JEFF inhibitor and beta-antoinette. This was suspected to be chronic situation unaddressed prior to this admission. In addition the patient was found to have hyperglycemia with a blood sugar greater than 300 on admission. A HbA1c was therefore drawn and 14.8, and she ws now a new onset diabetic. She was placed on insulin therapy with resolution of hyperglycemia into the normal range. As she began to quite require less and less insulin as the hospitalization progressed, in addition to a number of other logistical factors including the patient's Adventist background and abilities to communicate and get to and from doctor visits, it was decided to initiate diabetic treatment with metformin as monotherapy. It was made clear to the patient and her family this would more than likely need to be escalated to include insulin therapy, and/or, in increase in the dosage needed. Lifestyle modifications were strongly recommended. A primary care and cardiology followup appointment was made for her within the next two weeks as close follow-up with both was recommended. She was discharged in stable condition. (2) DMII (diabetes mellitus, type 2): (3) Obesity: Total Time Total Time Spent Total Time Spent (In Minutes): 60 Total Time Includes: Examination of the Patient, Discharge Planning, Medication Reconciliation and Communication With Other Providers Discharge Plan Discharge Items Patient Disposition: Home - Self-Care Reason For Visit: SOB Discharge Diagnosis: Acute systolic heart failure Diabetes Type II uncontrolled Condition on Discharge: Good Goals: HbA1C <6.5%, fasting blood sugar <126 and random blood sugar<200 Activity: Resume your previous activity Lifting: Gradually increase as tolerated Non-emergency contact: Primary Care Provider and Consumer Affairs Specialist Call non-emergency contact if: you have any medication questions, your symptoms worsen, your pain is not controlled, your pain is worsening, your pain is unusual for you, your pain is concerning for you and you have a fever Follow-up/Referrals: Rico Fang MD [Primary Care Provider] - 04/25/19 10:25 am Diet: Carb Consistent or DM2 and Low Sodium (2gm) Addtl Attending Provider Instructions: Please take all medications as instructed on discharge below. Please follow-up with your primary care provider: 04/25/2019 10:40 AM Rico Fang MD [facility] You will need repeat bloodwork to check your electrolytes and kidney function after being started on the new medication. You were placed on metformin for diabetes. However, this will need to be adjusted as time goes forward. Adjustment would occur through your primary care physician's office. It is recommended that you obtain a blood sugar monitor and testing supplies through your primary care physician's office as needed based on changes to this treatment plan. You may need insulin down the road, however, it will be important to start the metformin and have your primary care physician start this only if he thinks it is needed, then set you up to be monitored closely. I strongly recommend a repeat Hemoglobin A1C (nonfasting lab) in 1-3 months. Please adhere to a low sugar, low salt diet and work on exercises that will increase your lean muscle mass and decrease your percent body fat. Please wear shoes and protect your feet as cuts or injuries may have delayed healing. Your primary care physician may recommend an annual eye exam. Please follow-up with Cardiology as recommended below: Date & Time 05/02/2019 9:00 AM Provider Jillian Silva MD Department [facility] [place] [facility] It was a pleasure taking care of you! Please call if you have any questions or problems. You can reach a [facility] hospitalist on duty at [facility] 24 hours a day by calling [phone]. Take care of yourself. Elysia Kowalski DO [facility] Hospitalist Pending Studies at Discharge: No Stand-Alone Forms: My [facility], Smoking Cessation Medications and DC Order Prescriptions: New lisinopril [Zestril] 5 mg Tablet 5 mg PO QAM Qty: 30 RF: 1 metoprolol succinate 25 mg Tablet Extended Release 24 Hr 25 mg PO BID17 Qty: 60 RF: 1 spironolactone 25 mg Tablet 25 mg PO QAM Qty: 30 RF: 1 aspirin 81 mg Tablet,Delayed Release (Dr/Ec) 81 mg PO QAM Qty: 90 RF: 1 furosemide 40 mg Tablet 40 mg PO BID17 Qty: 60 RF: 1 potassium chloride [Klor-Con M20] 20 mEq Tablet,Er Particles/Crystals 20 meq PO QAM Qty: 30 RF: 1 metformin 500 mg tablet 500 mg PO BID Qty: 60 RF: 1 Discontinued aspirin 325 mg Tablet,Delayed Release (Dr/Ec) 325 mg PO UD PRN (Reason: Pain) RF: 0 furosemide [Lasix] 20 mg Tablet 20 mg PO DAILY RF: 0 Discharge Orders: Discharge Order (Routine); Ordered 04/20/19 Ordered By: Elysia Kowalski Admission Data Admit Date/Time: 04/15/19 16:36 Attending Provider: Elysia Kowalski Admit Provider: Jesika Kenyon Primary Care Provider: Rico Fang I. Other Providers: Elysia Kowalski ; Basil Lopez ; Enrrique Omalley ; Maxime Prabhakar ; Abbe Vann ; Benjamin Drew ; Martin Contreras ; Bharati Hernandez ; Doris Farfan ; Kendall Yu Other Interventions: Discharge Summary Assessment (RN) Last Done: 04/20/19 15:49 DC Date/Time DO NOT enter until pt leaves facility: 04/20/19 16:11
== END 2019-04-20 16:11 | disposition home or self-care (01) | DRG 291 ==
LOC: ED 13:17 → SUATTDRO 16:36 → 2S 16:36